=== PATIENT | female | born 1940 | race Caucasian/White ===

== ENCOUNTER → 2017-07-24 | Outpatient (CLI) | payer MEDICARE ==
[~2017-07-24] MED LIST: ACYC800T PO; ASPI-183 PO; CHOL400D2 PO; FLUT50SP EACH NARE; LEVO88TA2 PO; LOSA50TA PO; MELO15TA20 PO; MULTTAB67 PO; PANT40TA3 PO; TIZA2CAP3 PO; TRAM50TA PO
[2017-07-24 10:11] LABS: PROTHROMBIN TIME - PATIENT 10.5 SEC (9.8-11.6)
== END ==
LOC: HLAB 09:31
PROVIDERS: ATTEND Family Medicine
DX: R79.1 Abnormal coagulation profile (principal)
CPT/HCPCS: 36415; 85610

== ENCOUNTER → 2017-07-25 | Outpatient (CLI) | payer MEDICARE ==
[2017-07-25 09:01] LABS: INTERNATIONAL NORMALIZED RATIO 1.1 RATIO; PROTHROMBIN TIME - PATIENT 10.7 SEC (9.8-11.6)
== END ==
LOC: HLAB 08:31
PROVIDERS: ATTEND Specialist
DX: R79.1 Abnormal coagulation profile (principal)
CPT/HCPCS: 36415; 85610

== ENCOUNTER 2017-09-26 18:49 | Observation (INO) | payer MEDICARE ==
[~2017-09-26] VITALS: Ht 160 cm; Wt 62.0 kg
[2017-09-26 18:56] VITALS: BP 176/74; PULSE 85; RESP 16; TEMP 97.9; O2SAT 98
[2017-09-26 19:08] VITALS: BP 146/66; PULSE 81; RESP 18; O2SAT 99
[2017-09-26] MEDS ORDERED: COUM2.5T PO (19:08)
[2017-09-26] MEDS ORDERED: COUM5TAB PO (19:08)
[2017-09-26] MEDS ORDERED: SODIUM CHLOR 0.9% 1000 ML INJ 1,000 ML IV SCH (19:24)
[2017-09-26] MEDS ORDERED: ONDANSETRON HCL 4 MG/2 ML VIAL IVP ONE (19:30)
[2017-09-26] MEDS ORDERED: SODIUM CHLORIDE 0.9% FLUSH 10 ML FLUSH IV FLUSH PRN ×2 (19:30→23:00)
[2017-09-26] MEDS ORDERED: HYDROmorphone HCL PF 1 MG/ML VIAL IVS ONE (19:30)
--- NOTE | 2017-09-26 19:43 | PD ---
HPI Chief Complaint: Chest Pain Time Seen by Provider: 18:59 Travel History International Travel<30 days: No Contact w/Intl Traveler<30days: No Traveled to known affect area: No History of Present Illness HPI Is a 77-year-old woman presents emerged from complaining of upper abdominal pain started today. 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 She is on warfarin. She also has a history of GERD for which she takes a PPI. Symptoms are greater mostly just indigestion. No history of abdominal surgeries. No history of gallbladder problems. No history of heart disease. Starting today after Easter she started getting upper abdominal pain rating into her back. Is associated with nausea but no vomiting, as well as some lightheadedness. Describes pressure-like discomfort. She left in her was heading home but had her bring to the emergency department because symptoms worsen. She has not had previous similar symptoms. She otherwise had been feeling well and healthy before this. No NSAIDs, no alcohol. No other recent illness or injury. No other complaints. History Past Medical History Narrative Medical Vertebral artery dissection, complicated by stroke, on warfarin Hypertension GERD Hypothyroidism Social History Alcohol Use: No Tobacco Use: No Allergies-Medications (Allergen,Severity, Reaction): Coded Allergies: ciprofloxacin (Unverified Allergy, Severe, Rash, 09/26/17) latex (Unverified Allergy, Severe, Rash & Swelling, 09/26/17) codeine (Unverified Allergy, Mild, 09/26/17) Reported Meds & Prescriptions Reported Meds & Active Scripts Active Fluticasone Nasal [place] 50 Mcg/Act Naspr 2 [place] EACH NARE DAILY 50 mcg/spray Tramadol (Tramadol HCl) 50 Mg Tab 50 Mg PO Q8H PRN Take 1/2 tab as needed every 8 hours for pain Levothyroxine (Levothyroxine Sodium) 88 Mcg Tab 88 Mcg PO DAILY Tizanidine (Tizanidine HCl) 2 Mg Cap 2 Mg PO TID PRN Losartan (Losartan Potassium) 50 Mg Tab 50 Mg PO DAILY Pantoprazole (Pantoprazole Sodium) 40 Mg Tab 40 Mg PO DAILY Reported Coumadin (Warfarin) 2.5 Mg Tab 2.5 Mg PO DAILY Coumadin (Warfarin) 5 Mg Tab 5 Mg PO Vitamin D (Cholecalciferol) 400 Unit/Ml Drops 400 Units PO QID Review of Systems Except as stated in HPI: all other systems reviewed are Neg Physical Exam Narrative GENERAL: 77-year-old woman, uncomfortable, nontoxic. SKIN: Focused skin assessment warm/dry. HEAD: Atraumatic. Normocephalic. EYES: Pupils equal and round. No scleral icterus. No injection or drainage. ENT: No nasal bleeding or discharge. Mucous membranes pink and moist. NECK: Trachea midline. No JVD. CARDIOVASCULAR: Regular rate and rhythm. No murmur appreciated. RESPIRATORY: No accessory muscle use. Clear to auscultation. Breath sounds equal bilaterally. GASTROINTESTINAL: Abdomen soft, significant upper and right upper quadrant abdominal tenderness with positive Haider sign. MUSCULOSKELETAL: No obvious deformities. No edema. NEUROLOGICAL: Awake and alert. No obvious cranial nerve deficits. Motor grossly within normal limits. Normal speech. Data Data Last Documented VS Vital Signs Date Time Temp Pulse Resp B/P (MAP) Pulse Ox O2 Delivery O2 Flow Rate FiO2 09/26/17 19:08 81 18 146/66 (92) 99 Room Air 09/26/17 18:56 97.9 Orders Orders Complete Blood Count With Diff (09/26/17 19:24) Comprehensive Metabolic Panel (09/26/17 19:24) Lipase (09/26/17 19:24) Prothrombin Time / Inr (Pt) (09/26/17 19:24) Act Partial Throm Time (Ptt) (09/26/17 19:24) Urinalysis - C+S If Indicated (09/26/17 19:24) Us Abdomen Gallbladder (09/26/17 ) Iv Access Insert/Monitor (09/26/17 19:24) Ecg Monitoring (09/26/17 19:24) Oximetry (09/26/17 19:24) Ondansetron Inj (Zofran Inj) (09/26/17 19:30) Sodium Chlor 0.9% 1000 Ml Inj (Ns 1000 M (09/26/17 19:24) Sodium Chloride 0.9% Flush (Ns Flush) (09/26/17 19:30) Electrocardiogram (09/26/17 19:24) Chest, Single Ap (09/26/17 19:24) Hydromorphone Pf Inj (Dilaudid Pf Inj) (09/26/17 20:00) Urine Culture (09/26/17 19:45) Ceftriaxone Inj (Rocephin Inj) (09/26/17 21:30) Admit Order (Ed Use Only) (09/26/17 ) Labs Laboratory Tests Test 09/26/17 19:37 09/26/17 19:45 White Blood Count 17.0 TH/MM3 Red Blood Count 4.42 MIL/MM3 Hemoglobin 13.7 GM/DL Hematocrit 39.8 % Mean Corpuscular Volume 90.0 FL Mean Corpuscular Hemoglobin 30.9 PG Mean Corpuscular Hemoglobin Concent 34.4 % Red Cell Distribution Width 13.8 % Platelet Count 318 TH/MM3 Mean Platelet Volume 9.1 FL Neutrophils (%) (Auto) 18.5 % Lymphocytes (%) (Auto) 76.1 % Monocytes (%) (Auto) 4.5 % Eosinophils (%) (Auto) 0.3 % Basophils (%) (Auto) 0.6 % Neutrophils # (Auto) 3.2 TH/MM3 Lymphocytes # (Auto) 13.0 TH/MM3 Monocytes # (Auto) 0.8 TH/MM3 Eosinophils # (Auto) 0.0 TH/MM3 Basophils # (Auto) 0.1 TH/MM3 CBC Comment AUTO DIFF Differential Total Cells Counted 100 Neutrophils % (Manual) 26 % Lymphocytes % 69 % Monocytes % 5 % Neutrophils # (Manual) 4.4 TH/MM3 Differential Comment FINAL DIFF MANUAL Platelet Estimate NORMAL Platelet Morphology Comment NORMAL Red Cell Morphology Comment NORMAL Prothrombin Time 16.7 SEC Prothromb Time International Ratio 1.7 RATIO Activated Partial Thromboplast Time 29.9 SEC Blood Urea Nitrogen 17 MG/DL Creatinine 0.96 MG/DL Random Glucose 90 MG/DL Total Protein 7.5 GM/DL Albumin 4.0 GM/DL Calcium Level 8.8 MG/DL Alkaline Phosphatase 72 U/L Aspartate Amino Transf (AST/SGOT) 138 U/L Alanine Aminotransferase (ALT/SGPT) 106 U/L Total Bilirubin 0.4 MG/DL Sodium Level 137 MEQ/L Potassium Level 3.8 MEQ/L Chloride Level 102 MEQ/L Carbon Dioxide Level 25.4 MEQ/L Anion Gap 10 MEQ/L Estimat Glomerular Filtration Rate 56 ML/MIN Lipase 262 U/L Urine Color YELLOW Urine Turbidity CLEAR Urine pH 6.0 Urine Specific [place] 1.022 Urine Protein TRACE mg/dL Urine Glucose (UA) NEG mg/dL Urine Ketones NEG mg/dL Urine Occult Blood SMALL Urine Nitrite NEG Urine Bilirubin NEG Urine Urobilinogen LESS THAN 2.0 MG/DL Urine Leukocyte Esterase LARGE Urine RBC 6 /hpf Urine WBC 37 /hpf Urine Squamous Epithelial Cells 1 /hpf Urine Transitional Epithelial Cells 1 /hpf Urine Bacteria OCC /hpf Urine Hyaline Casts 2 /lpf Urine Mucus FEW /lpf Microscopic Urinalysis Comment CULTURE INDICATED MDM Medical Decision Making Medical Screen Exam Complete: Yes Emergency Medical Condition: Yes Interpretation(s) My review of EKG: Normal sinus rhythm at a rate of 81, normal axis, normal intervals, no acute ischemia. LABS: CBC remarkable for white count of 17,000 CMP remarkable for elevated AST and ALT Lipase normal Coags INR 1.7 UA with hematuria and pyuria. Gallbladder ultrasound negative. Differential Diagnosis Cholecystitis, gastritis, dissection, cardiac disease, pancreatitis, other Narrative Course Medical decision making INITIAL call is a 77-year-old presents emerged department complaining of upper abdominal pain into the back with significant right upper quadrant tenderness and positive Haider sign strongly suggestive of acute cholecystitis. She looks well. Said his previous dissection in the past. Symptoms do not seem consistent with dissection. Will check labs, ultrasound, medication, reassess. FINAL: Patient with negative normal ultrasound. History strongly suggestive of biliary disease however. AST ALT are low but elevated. White counseled bit elevated. Could be suspicious for choledocholithiasis. Some pyuria in the urine however I do not think this really explains her clinical findings. Given her age, diagnostic uncertainty, we will plan on admission for observation. Diagnosis Primary Impression: Abdominal pain Johnathan Riley MD Sep 26, 2017 19:43
--- NOTE | 2017-09-26 19:58 | RADRPT ---
EXAM DATE/TIME: 09/26/2017 19:47 [facility] COMPARISON: No previous studies available for comparison. INDICATIONS : Chest pains. MEDICAL HISTORY : SURGICAL HISTORY : None. ENCOUNTER: Initial ACUITY: 1 day PAIN SCORE: 5/10 LOCATION: Bilateral chest FINDINGS: A single view of the chest demonstrates the lungs to be symmetrically aerated without evidence of mas s, infiltrate or effusion. The cardiomediastinal contours are unremarkable. Osseous structures are intact. CONCLUSION: No acute disease. Farhat Hyman MD on September 26, 2017 at 19:56 Board Certified Radiologist. This report was verified electronically.
[2017-09-26 19:59] LABS: AUTOMATED NEUTROPHIL # 3.2 TH/MM3 (1.8-7.7); BASOPHIL # 0.1 TH/MM3 (0-0.2); BASOPHIL % 0.6 % (0.0-2.0); EOSINOPHIL % 0.3 % (0.0-4.0); HEMATOCRIT 39.8 % (35.0-46.0); HEMOGLOBIN 13.7 GM/DL (11.6-15.3); LYMPH % 76.1 % (9.0-44.0); MEAN CORPUSCULAR HEMOGLOBIN 30.9 PG (27.0-34.0); MEAN CORPUSCULAR HGB CONC 34.4 % (32.0-36.0); MEAN PLATELET VOLUME 9.1 FL (7.0-11.0); MONO % 4.5 % (0.0-8.0); MONOCYTE # 0.8 TH/MM3 (0-0.9); NEUT % 18.5 % (16.0-70.0); PLATELET COUNT 318 TH/MM3 (150-450); RED BLOOD COUNT 4.42 MIL/MM3 (4.00-5.30); RED CELL DISTRIBUTION WIDTH 13.8 % (11.6-17.2)
[2017-09-26] MEDS ORDERED: HYDROmorphone HCL PF 2 MG/ML VIAL IV PUSH ONE (20:00)
[2017-09-26 20:11] LABS: INTERNATIONAL NORMALIZED RATIO 1.7 RATIO; PROTHROMBIN TIME - PATIENT 16.7 SEC (9.8-11.6)
[2017-09-26 20:16] LABS: BACTERIA, URINE OCC /hpf; BILIRUBIN, URINE NEG (NEG); BLOOD, URINE SMALL (NEG); GLUCOSE,URINE NEG (NEG); HYALINE CAST, URINE 2 /lpf (RARE); KETONE, URINE NEG (NEG); MUCUS URINE FEW /lpf (OCC); NITRITE,URINE NEG (NEG); SQUAMOUS EPITHELIAL CELL URINE 1 /hpf (0-5); TRANSITIONAL EPI CELLS, URINE 1 /hpf; URINE COLOR YELLOW (YELLW/STRAW); URINE LEUKOCYTE ESTERASE LARGE (NEG)
[2017-09-26 20:19] LABS: ALT (GPT) 106 U/L (10-53); AST (GOT) 138 U/L (15-37); BICARBONATE 25.4 MEQ/L (21.0-32.0); BLOOD UREA NITROGEN 17 MG/DL (7-18); CALCIUM 8.8 MG/DL (8.5-10.1); CHLORIDE 102 MEQ/L (98-107); CREATININE 0.96 MG/DL (0.50-1.00); GLOMERULAR FILTRATION RATE 56 ML/MIN (>89); GLUCOSE,RANDOM 90 MG/DL (74-106); SODIUM (NA) 137 MEQ/L (136-145)
[2017-09-26 20:22] LABS: ALKALINE PHOSPHATASE 72 U/L (45-117); TOTAL BILIRUBIN ADULT 0.4 MG/DL (0.2-1.0); TOTAL PROTEIN 7.5 GM/DL (6.4-8.2)
[2017-09-26 20:47] LABS: LYMPHOCYTES 69 % (9-44); MONOCYTES 5 % (0-8); NEUTROPHIL # MANUAL DIFF 4.4 TH/MM3 (1.8-7.7); POLYS (SEG NEUTROPHILS) 26 % (16-70)
--- NOTE | 2017-09-26 20:47 | RADRPT ---
EXAM DATE/TIME: 09/26/2017 20:14 [facility] COMPARISON: No previous studies available for comparison. INDICATIONS : Right upper quadrant pain. MEDICAL HISTORY : Stroke. Hypertension. Gastroesophageal reflux disease. Thyroid disease. Cataracts. Hyperlipidemia. Ur inary tract infection. Skin cancer. Sciatica. SURGICAL HISTORY : Bilateral bunionectomy. ENCOUNTER: Initial ACUITY: 4-6 days PAIN SCORE: 5/10 LOCATION: Right upper quadrant MEASUREMENTS: LIVER: 11.7 cm length COMMON DUCT: 4 mm RIGHT KIDNEY: 9.2 x 3.0 x 4.2 cm FINDINGS: LIVER: Normal echotexture without focal lesion or ductal dilatation. COMMON DUCT: No intraluminal mass or stone visualized. GALLBLADDER: Contains no stones, demonstrates no wall thickening or pericholecystic fluid. PANCREAS: The visualized portions are within normal limits. RIGHT KIDNEY: No evidence of hydronephrosis, stone, or mass. CONCLUSION: Normal examination. Farhat Hyman MD on September 26, 2017 at 20:45 Board Certified Radiologist. This report was verified electronically.
[2017-09-26] MEDS ORDERED: cefTRIAXone INJ 1,000 MG in SODIUM CHLORIDE 0.9% INJ 100 ML IV ONE (21:30)
--- NOTE | 2017-09-26 21:42 | HHI.HP ---
[facility] Service Family Medicine Primary Care Physician Radha Mc MD Admission Diagnosis Diagnoses: International Travel<30 Days: No Contact w/Intl Traveler<30days: No Known Affected Area: No History of Present Illness 77 y/o F, hx of GERD, vertebral dissection, comes in with abdominal pain. 6PM this evening she started to feel abdominal pain ; she was trying to sit down at dinner and felt like she couldn't eat. [place] sweaty. She has never felt like this before, and she decided to come into the ED. The pain started in the center of her abdomen and moved to the epigastric area. Denies any left-sided chest pain/dizzyness/confusion. She did feel like "she couldn't catch her breath " because of the pressure. For lunch today she had an egg, sandwich, deviled egg , and a mint chocolate. She has been having intermittent back pain x 1 month, diagnosed as muscle spasm by PCP. Her back pain is exacerbated by activity. SHe takes tylenol for the pain ; including 10 days ago when she would take max 4 tablets of 500mg tabs / day. She took 2 tylenol today, but no tylenol the 3 days prior. She has taken muscle relaxants very sparingly. (Ainsley Guerra MD R2) Review of Systems Constitutional: COMPLAINS OF: Weight loss (lost 15lb on purpose, dieting), DENIES: Fever, Weight gain Endocrine: DENIES: Polyuria Eyes: DENIES: Vision loss, Double Vision Ears, nose, mouth, throat: DENIES: Hearing loss, Vertigo Respiratory: DENIES: Cough, Wheezing, Hemoptysis Cardiovascular: DENIES: Dyspnea on Exertion, PND, Lower Extremity Edema Gastrointestinal: DENIES: Black stools, Bloody stools Integumentary: DENIES: Rash Neurologic: DENIES: Headache, Seizures Psychiatric: DENIES: Mood changes, Depression (Ainsley Guerra MD R2) Past Family Social History Past Medical History GERD Sciatica Possible muscle spasm Hypothyroidism HTN Past Surgical History foot bunion surgery 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 (Ainsley Guerra MD R2) Allergies: Coded Allergies: ciprofloxacin (Unverified Allergy, Severe, Rash, 09/26/17) latex (Unverified Allergy, Severe, Rash & Swelling, 09/26/17) codeine (Unverified Allergy, Mild, 09/26/17) Family History Cholecystectomys for all the women in the family Social History lives at home with no smoking, no drinking (no drinking for 3 months), no drug use (Ainsley Guerra MD R2) Physical Exam Vital Signs Vital Signs Date Time Temp Pulse Resp B/P (MAP) Pulse Ox O2 Delivery O2 Flow Rate FiO2 09/26/17 19:08 81 18 146/66 (92) 99 Room Air 09/26/17 18:56 97.9 85 16 176/74 (108) 98 Physical Exam GENERAL: This is a well-nourished, well-developed patient, in no apparent distress. Per records at the time of ED admission she was in 8 out of 10 pain and in acute right upper quadrant abdominal pain. Patient was given a dose of Dilaudid and now she is comfortable and without pain. No current complaints SKIN: No rashes, ecchymoses or lesions. Cool and dry. HEAD: Atraumatic. Normocephalic. No temporal or scalp tenderness. EYES: Pupils equal round and reactive. Extraocular motions intact. No scleral icterus. No injection or drainage. ENT: Nose without bleeding, purulent drainage or septal hematoma. Throat without erythema, tonsillar hypertrophy or exudate. Uvula midline. Airway patent. NECK: Trachea midline. No JVD or lymphadenopathy. Supple, nontender, no meningeal signs. CARDIOVASCULAR: Regular rate and rhythm without murmurs, gallops, or rubs. RESPIRATORY: Clear to auscultation. Breath sounds equal bilaterally. No wheezes , rales, or rhonchi. GASTROINTESTINAL: Abdomen soft, non-tender, nondistended. No hepato-splenomegaly , or palpable masses. No guarding. Patient states some pain can be re-created by palpation of left upper quadrant and right upper quadrant. No pain on palpation of epigastric area. MUSCULOSKELETAL: Extremities without clubbing, cyanosis, or edema. No joint tenderness, effusion, or edema noted. No calf tenderness. Negative Homans sign bilaterally. NEUROLOGICAL: Awake and alert. Cranial nerves II through XII intact. Motor and sensory grossly within normal limits. Five out of 5 muscle strength in all muscle groups. Normal speech. Laboratory Laboratory Tests Test 09/26/17 19:37 09/26/17 19:45 White Blood Count 17.0 Red Blood Count 4.42 Hemoglobin 13.7 Hematocrit 39.8 Mean Corpuscular Volume 90.0 Mean Corpuscular Hemoglobin 30.9 Mean Corpuscular Hemoglobin Concent 34.4 Red Cell Distribution Width 13.8 Platelet Count 318 Mean Platelet Volume 9.1 Neutrophils (%) (Auto) 18.5 Lymphocytes (%) (Auto) 76.1 Monocytes (%) (Auto) 4.5 Eosinophils (%) (Auto) 0.3 Basophils (%) (Auto) 0.6 Neutrophils # (Auto) 3.2 Lymphocytes # (Auto) 13.0 Monocytes # (Auto) 0.8 Eosinophils # (Auto) 0.0 Basophils # (Auto) 0.1 CBC Comment AUTO DIFF Differential Total Cells Counted 100 Neutrophils % (Manual) 26 Lymphocytes % 69 Monocytes % 5 Neutrophils # (Manual) 4.4 Differential Comment FINAL DIFF MANUAL Platelet Estimate NORMAL Platelet Morphology Comment NORMAL Red Cell Morphology Comment NORMAL Prothrombin Time 16.7 Prothromb Time International Ratio 1.7 Activated Partial Thromboplast Time 29.9 Blood Urea Nitrogen 17 Creatinine 0.96 Random Glucose 90 Total Protein 7.5 Albumin 4.0 Calcium Level 8.8 Alkaline Phosphatase 72 Aspartate Amino Transf (AST/SGOT) 138 Alanine Aminotransferase (ALT/SGPT) 106 Total Bilirubin 0.4 Sodium Level 137 Potassium Level 3.8 Chloride Level 102 Carbon Dioxide Level 25.4 Anion Gap 10 Estimat Glomerular Filtration Rate 56 Lipase 262 Urine Color YELLOW Urine Turbidity CLEAR Urine pH 6.0 Urine Specific [place] 1.022 Urine Protein TRACE Urine Glucose (UA) NEG Urine Ketones NEG Urine Occult Blood SMALL Urine Nitrite NEG Urine Bilirubin NEG Urine Urobilinogen LESS THAN 2.0 Urine Leukocyte Esterase LARGE Urine RBC 6 Urine WBC 37 Urine Squamous Epithelial Cells 1 Urine Transitional Epithelial Cells 1 Urine Bacteria OCC Urine Hyaline Casts 2 Urine Mucus FEW Microscopic Urinalysis Comment CULTURE INDICATED Date/Time Source Procedure Growth Status 09/26/17 19:45 Urine Random Urine Urine Culture Pending Received (Ainsley Guerra MD R2) Result Diagram: 09/26/17193609/26/171936 Septic Shock Reassessment Septic shock perfusion: reassessment completed (Ainsley Guerra MD R2) Caprini VTE Risk Assessment Caprini VTE Risk Assessment: No/Low Risk (score <= 1) Caprini Risk Assessment Model Point Value = 1 Point Value = 2 Point Value = 3 Point Value = 5 Age 41-60 Minor surgery BMI > 25 kg/m2 Swollen legs Varicose veins or History of unexplained or recurrent spontaneous Oral contraceptives or hormone replacement Sepsis (< 1 month) Serious lung disease, including pneumonia (< 1 month) Abnormal pulmonary function Acute myocardial infarction Congestive heart failure (< 1 month) History of inflammatory bowel disease Medical patient at bed rest Age 61-74 Arthroscopic surgery Major open surgery (> 45 min) Laparoscopic surgery (> 45 min) Malignancy Confined to bed (> 72 hours) Immobilizing plaster cast Central venous access Age >= 75 History of VTE Family history of VTE Factor V Leiden Prothrombin [id number] Lupus anticoagulant Anticardiolipin antibodies Elevated serum homocysteine Heparin-induced thrombocytopenia Other congenital or acquired thrombophilia Stroke (< 1 month) Elective arthroplasty Hip, pelvis, or leg fracture Acute spinal cord injury (< 1 month) Prophylaxis Regimen Total Risk Factor Score Risk Level Prophylaxis Regimen 0-1 Low Early ambulation 2 Moderate Order ONE of the following: *Sequential Compression Device (SCD) *Heparin 5000 units SQ BID 3-4 Higher Order ONE of the following medications: *Heparin 5000 units SQ TID *Enoxaparin/Lovenox 40 mg SQ daily (WT < 150 kg, CrCl > 30 mL/min) *Enoxaparin/Lovenox 30 mg SQ daily (WT < 150 kg, CrCl > 10-29 mL/min) *Enoxaparin/Lovenox 30 mg SQ BID (WT < 150 kg, CrCl > 30 mL/min) AND/OR *Sequential Compression Device (SCD) 5 or more Highest Order ONE of the following medications: *Heparin 5000 units SQ TID (Preferred with Epidurals) *Enoxaparin/Lovenox 40 mg SQ daily (WT < 150 kg, CrCl > 30 mL/min) *Enoxaparin/Lovenox 30 mg SQ daily (WT < 150 kg, CrCl > 10-29 mL/min) *Enoxaparin/Lovenox 30 mg SQ BID (WT < 150 kg, CrCl > 30 mL/min) AND *Sequential Compression Device (SCD) (Ainsley Guerra MD R2) Assessment and Plan Assessment and Plan 77 y/o F, hx of vertebral artery occlusion, Dixon esophagus and GERD, presents with acute right upper quadrant abdominal pain. (Ainsley Guerra MD R2) Problem List: (1) Elevated LFTs ICD Codes: R79.89 - Other specified abnormal findings of blood chemistry Status: Acute Plan: Physical exam findings on admission consistent with cholecystitis, however imaging did not confirm AST/ALT: 27/33 on 09/10 (see in [facility]) AST/ALT: 138/106 on 09/26 with elevated white count of 17, vital signs stable Alkaline phosphatase normal, bilirubin normal May be due to gallbladder disease versus liver disease versus Tylenol toxicity Right upper quadrant ultrasound:negative CT abdomen: Negative (2) Vertebral artery dissection ICD Codes: I77.74 - Dissection of vertebral artery Plan: Continue ASA 325mg PO daily Due for CTA brain in November f/u neurology outpatient (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 Status: Chronic Plan: GERD and history of Dixon esophagus Cont PPI (4) Hypertension ICD Codes: I10 - Essential (primary) hypertension Status: Chronic Plan: continue home meds (5) Hypothyroidism ICD Codes: E03.9 - Hypothyroidism, unspecified Plan: Re-checked TSH on 09/21 Continue decreased dose of 88 f/u as outpatient (6) Back pain ICD Codes: M54.9 - Dorsalgia, unspecified Status: Chronic Plan: Back pain intermittent 1 month Muscle spasm versus pathological process CT abdomen: Negative (7) fen/ppx Status: Acute Plan: Fluids: Encourage by mouth fluids Electrolytes: BMP normal, replete as needed Nutrition: By mouth diet as tolerated DVT prophylaxis: Continue anticoagulation with warfarin, INR 1.7 subtherapeutic Prophylaxis: Continue PPI (Ainsley Guerra MD R2) Ainsley Guerra MD R2 Sep 26, 2017 21:42 Radha Mc MD Sep 27, 2017 11:07
[2017-09-26] MEDS ORDERED: WARFARIN SOD 5 MG TAB PO SCH (22:15)
[2017-09-26] MEDS: SODIUM CHLOR 0.9% 1000 ML INJ 1,000 ML IV SCH (22:56)
[2017-09-26] MEDS ORDERED: LACTULOSE SYRUP 20 GM/30 ML CUP PO PRN (23:00)
[2017-09-26] MEDS ORDERED: NALOXONE HCL 0.4 MG/ML AMP IV PUSH PRN (23:00)
[2017-09-26] MEDS ORDERED: MAGNESIUM HYDROXIDE SUSP 30 ML CUP PO PRN (23:00)
[2017-09-26] MEDS ORDERED: SENNOSIDES 8.6 MG TAB PO PRN (23:00)
[2017-09-26] MEDS ORDERED: BISACODYL 10 MG SUPP RECTAL PRN (23:00)
[2017-09-26] MEDS ORDERED: TEMAZEPAM 15 MG CAP PO PRN (23:00)
[2017-09-26] MEDS ORDERED: ONDANSETRON HCL 4 MG/2 ML VIAL IVP PRN (23:00)
--- NOTE | 2017-09-26 23:36 | RADRPT ---
EXAM DATE/TIME: 09/26/2017 23:21 [facility] COMPARISON: No previous studies available for comparison. INDICATIONS : Right upper abdomen pain ORAL CONTRAST: No oral contrast ingested. RADIATION DOSE: 6.53 CTDIvol (mGy) MEDICAL HISTORY : Cerebrovascular disease. Hypertension. Gastroesophageal reflux disease. SURGICAL HISTORY : None. ENCOUNTER: Initial ACUITY: 1 day PAIN SCALE: 7/10 LOCATION: Right upper quadrant TECHNIQUE: Volumetric scanning of the abdomen was performed. Using automated exposure control and adjustment of the mA and/or kV according to patient size, radiation dose was kept as low as reasonably achievable to obtain optimal diagnostic quality images. DICOM format image data is available electronically for review and comparison. FINDINGS: LOWER LUNGS: The visualized lower lungs are clear. LIVER: Homogeneous density without lesion. There is no dilation of the biliary tree. No calcified gallston es. SPLEEN: Normal size without lesion. PANCREAS: Within normal limits. KIDNEYS: Normal in size and shape. There is no mass, stone, or hydronephrosis. ADRENAL GLANDS: Within normal limits. AORTA/RETROPERITONEAL: There is no aneurysm or lymphadenopathy. BOWEL/MESENTERY: The stomach and visualized small and large bowel demonstrate no abnormality. MUSCULOSKELETAL: Within normal limits for patient age. CONCLUSION: No acute CT findings in the abdomen Stewart Mitchell MD on September 26, 2017 at 23:32 Board Certified Radiologist. This report was verified electronically.
[2017-09-26 23:37] VITALS: O2SAT 98
[2017-09-27] VITALS (7 sets, daily range): BP systolic 98–126; BP diastolic 54–59; PULSE 57–72; RESP 18–20; TEMP 97.5–97.9; O2SAT 96–98
[2017-09-27 00:26] LABS: TROPONIN I LESS THAN 0.02 NG/ML (0.02-0.05)
[2017-09-27 02:25] LABS: AUTOMATED NEUTROPHIL # 4.3 TH/MM3 (1.8-7.7); BASOPHIL % 0.3 % (0.0-2.0); EOSINOPHIL # 0.1 TH/MM3 (0-0.4); EOSINOPHIL % 0.4 % (0.0-4.0); HEMATOCRIT 36.1 % (35.0-46.0); HEMOGLOBIN 12.3 GM/DL (11.6-15.3); LYMPH % 63.2 % (9.0-44.0); LYMPHOCYTE # 8.5 TH/MM3 (1.0-4.8); MEAN CELL VOLUME 90.3 FL (80.0-100.0); MEAN CORPUSCULAR HEMOGLOBIN 30.9 PG (27.0-34.0); MEAN CORPUSCULAR HGB CONC 34.2 % (32.0-36.0); MEAN PLATELET VOLUME 8.9 FL (7.0-11.0); MONO % 4.5 % (0.0-8.0); MONOCYTE # 0.6 TH/MM3 (0-0.9); NEUT % 31.6 % (16.0-70.0); PLATELET COUNT 258 TH/MM3 (150-450); RED BLOOD COUNT 3.99 MIL/MM3 (4.00-5.30); RED CELL DISTRIBUTION WIDTH 13.7 % (11.6-17.2); WHITE BLOOD COUNT 13.5 TH/MM3 (4.0-11.0)
[2017-09-27 03:02] LABS: ACETAMINOPHEN 2.3 MCG/ML (10.0-30.0); ALKALINE PHOSPHATASE 91 U/L (45-117); ALT (GPT) 805 U/L (10-53); AST (GOT) 1063 U/L (15-37); BICARBONATE 26.1 MEQ/L (21.0-32.0); BLOOD UREA NITROGEN 15 MG/DL (7-18); CHLORIDE 110 MEQ/L (98-107); CREATININE 0.67 MG/DL (0.50-1.00); GLOMERULAR FILTRATION RATE 85 ML/MIN (>89); GLUCOSE,RANDOM 90 MG/DL (74-106); SODIUM (NA) 140 MEQ/L (136-145); TOTAL BILIRUBIN ADULT 0.5 MG/DL (0.2-1.0); TOTAL PROTEIN 6.2 GM/DL (6.4-8.2); TROPONIN I LESS THAN 0.02 NG/ML (0.02-0.05)
[2017-09-27 04:33] LABS: ATYPICAL LYMPHOCYTES 11 % (0-0); BANDS 1 % (0-6); LYMPHOCYTES 56 % (9-44); MONOCYTES 4 % (0-8); NEUTROPHIL # MANUAL DIFF 3.8 TH/MM3 (1.8-7.7); POLYS (SEG NEUTROPHILS) 27 % (16-70)
[2017-09-27] MEDS: LEVOTHYROXINE SODIUM 88 MCG TAB PO SCH (06:36)
--- NOTE | 2017-09-27 08:51 | EKG ---
Date Performed: 09/26/2017 Time Performed: 19:03:12 PTAGE: 77 years EKG: Sinus rhythm NORMAL ECG PREVIOUS TRACING : 10/02/2012 15.50 Since the previous tracing, no significant change noted DOCTOR: Shelly Sunshine Interpretating Date/Time 09/27/2017 08:50:34
[2017-09-27] MEDS: SODIUM CHLOR 0.9% 1000 ML INJ 1,000 ML IV SCH ×2 (09:10→18:56)
[2017-09-27] MEDS: LOSARTAN 50 MG TAB PO SCH (09:10)
[2017-09-27] MEDS: PANTOPRAZOLE SOD 40 MG DELAYED RELEASE TAB PO SCH (09:10)
[2017-09-27] MEDS: SODIUM CHLORIDE 0.9% FLUSH 10 ML FLUSH IV FLUSH SCH ×2 (09:11→21:00)
--- NOTE | 2017-09-27 09:28 | PD.CONS ---
HPI History of Present Illness This is a 77 year old lady with hx CVA in 06/2017 on coumadin who presented to ER for abd pain. The pain is in upper quadrants and started suddenly yesterday evening and worsened. Pain was constant. Never had pain like this before. Recently was prescribed a muscle relaxer but has only taken once. Denies n/v, diarrhea, blood in stool, black tarry stool. Denies any hx liver problems, gallbladder problems. She drinks etoh 1-3 times weekly, "socially" but has not had any etoh since 06/2017. She rarely takes apap. She was taking aleve once daily for a year ago and stopped 06/2017. She sees Dr Obrien. She had colonoscopy last [address] Taylor, found diverticulosis and hemorrhoids. 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 (Macy Pritchard) PFSH Past Medical History CVA 06/2017 HTN hypothyroid GERD vertebral artery dissection Past Surgical History bunionectomy oral surgery (Macy Pritchard) Coded Allergies: ciprofloxacin (Unverified Allergy, Severe, Rash, 09/26/17) latex (Unverified Allergy, Severe, Rash & Swelling, 09/26/17) codeine (Unverified Allergy, Mild, 09/26/17) Family History aneurysm Social History drinks 1-3 x week but none since june 2017 no current tobacco, quit 30y ago no illicit drug use (Macy Pritchard) Review of Systems Constitutional: DENIES: Fever Endocrine: DENIES: Polydipsia Eyes: DENIES: Blurred vision Ears, nose, mouth, throat: DENIES: Hearing loss Respiratory: DENIES: Cough Cardiovascular: DENIES: Chest pain Gastrointestinal: COMPLAINS OF: Abdominal pain, DENIES: Black stools, Bloody stools, Diarrhea, Nausea, Vomiting Genitourinary: DENIES: Hematuria Musculoskeletal: DENIES: Muscle aches Hematologic/lymphatic: DENIES: Bruising Immunologic/allergic: DENIES: Eczema Neurologic: DENIES: Abnormal gait Psychiatric: DENIES: Confusion (Macy Pritchard) GI Exam Vitals I&O Vital Signs Date Time Temp Pulse Resp B/P (MAP) Pulse Ox O2 Delivery O2 Flow Rate FiO2 09/27/17 08:28 97.9 57 20 126/58 (80) 98 09/27/17 04:00 97.8 65 18 108/54 (72) 97 09/27/17 00:41 116/58 (77) 09/27/17 00:00 97.6 72 18 98/55 (69) 98 09/26/17 23:59 09/26/17 23:37 98 09/26/17 19:08 81 18 146/66 (92) 99 Room Air 09/26/17 18:56 97.9 85 16 176/74 (108) 98 I/O 09/26/17 09/26/17 09/26/17 09/27/17 09/27/17 09/27/17 07:00 15:00 23:00 07:00 15:00 23:00 Intake Total 100 ml Balance 100 ml Intake IV Total 100 ml Imaging Last Impressions Abdomen CT 09/26/17 2246 Signed Impressions: Service Date/Time: Tuesday, September 26, 2017 23:21 - CONCLUSION: No acute CT findings in the abdomen Stewart Mitchell MD Chest X-Ray 09/26/17 1924 Signed Impressions: Service Date/Time: Tuesday, September 26, 2017 19:47 - CONCLUSION: No acute disease. Farhat Hyman MD Gall Bladder Ultrasound 09/26/17 0000 Signed Impressions: Service Date/Time: Tuesday, September 26, 2017 20:14 - CONCLUSION: Normal examination. Farhat Hyman MD Laboratory Test 09/26/17 19:37 09/26/17 19:45 09/27/17 01:54 09/27/17 07:18 White Blood Count 17.0 TH/MM3 13.5 TH/MM3 Red Blood Count 4.42 MIL/MM3 3.99 MIL/MM3 Hemoglobin 13.7 GM/DL 12.3 GM/DL Hematocrit 39.8 % 36.1 % Mean Corpuscular Volume 90.0 FL 90.3 FL Mean Corpuscular Hemoglobin 30.9 PG 30.9 PG Mean Corpuscular Hemoglobin Concent 34.4 % 34.2 % Red Cell Distribution Width 13.8 % 13.7 % Platelet Count 318 TH/MM3 258 TH/MM3 Mean Platelet Volume 9.1 FL 8.9 FL Neutrophils (%) (Auto) 18.5 % 31.6 % Lymphocytes (%) (Auto) 76.1 % 63.2 % Monocytes (%) (Auto) 4.5 % 4.5 % Eosinophils (%) (Auto) 0.3 % 0.4 % Basophils (%) (Auto) 0.6 % 0.3 % Neutrophils # (Auto) 3.2 TH/MM3 4.3 TH/MM3 Lymphocytes # (Auto) 13.0 TH/MM3 8.5 TH/MM3 Monocytes # (Auto) 0.8 TH/MM3 0.6 TH/MM3 Eosinophils # (Auto) 0.0 TH/MM3 0.1 TH/MM3 Basophils # (Auto) 0.1 TH/MM3 0.0 TH/MM3 CBC Comment AUTO DIFF AUTO DIFF Differential Total Cells Counted 100 100 Neutrophils % (Manual) 26 % 27 % Lymphocytes % 69 % 56 % Monocytes % 5 % 4 % Neutrophils # (Manual) 4.4 TH/MM3 3.8 TH/MM3 Differential Comment FINAL DIFF MANUAL FINAL DIFF MANUAL Platelet Estimate NORMAL NORMAL Platelet Morphology Comment NORMAL NORMAL Red Cell Morphology Comment NORMAL NORMAL Prothrombin Time 16.7 SEC Prothromb Time International Ratio 1.7 RATIO Activated Partial Thromboplast Time 29.9 SEC Blood Urea Nitrogen 17 MG/DL 15 MG/DL Creatinine 0.96 MG/DL 0.67 MG/DL Random Glucose 90 MG/DL 90 MG/DL Total Protein 7.5 GM/DL 6.2 GM/DL Albumin 4.0 GM/DL 3.0 GM/DL Calcium Level 8.8 MG/DL 8.0 MG/DL Alkaline Phosphatase 72 U/L 91 U/L Aspartate Amino Transf (AST/SGOT) 138 U/L 1063 U/L Alanine Aminotransferase (ALT/SGPT) 106 U/L 805 U/L Total Bilirubin 0.4 MG/DL 0.5 MG/DL Sodium Level 137 MEQ/L 140 MEQ/L Potassium Level 3.8 MEQ/L 3.8 MEQ/L Chloride Level 102 MEQ/L 110 MEQ/L Carbon Dioxide Level 25.4 MEQ/L 26.1 MEQ/L Anion Gap 10 MEQ/L 4 MEQ/L Estimat Glomerular Filtration Rate 56 ML/MIN 85 ML/MIN Troponin I LESS THAN 0.02 NG/ML LESS THAN 0.02 NG/ML LESS THAN 0.02 NG/ML Lipase 262 U/L 188 U/L Urine Color YELLOW Urine Turbidity CLEAR Urine pH 6.0 Urine Specific Wells 1.022 Urine Protein TRACE mg/dL Urine Glucose (UA) NEG mg/dL Urine Ketones NEG mg/dL Urine Occult Blood SMALL Urine Nitrite NEG Urine Bilirubin NEG Urine Urobilinogen LESS THAN 2.0 MG/DL Urine Leukocyte Esterase LARGE Urine RBC 6 /hpf Urine WBC 37 /hpf Urine Squamous Epithelial Cells 1 /hpf Urine Transitional Epithelial Cells 1 /hpf Urine Bacteria OCC /hpf Urine Hyaline Casts 2 /lpf Urine Mucus FEW /lpf Microscopic Urinalysis Comment CULTURE INDICATED Band Neutrophils % 1 % Eosinophils % 1 % Atypical Lymphocytes 11 % Acetaminophen Level 2.3 MCG/ML Date/Time Source Procedure Growth Status 09/26/17 19:45 Urine Random Urine Urine Culture Pending Received Physical Examination HEENT: PERRL; normocephalic; atraumatic; no jaundice. CHEST: CTA CARDIAC: RRR ABDOMEN: Soft, nondistended, nontender; no hepatosplenomegaly; bowel sounds are present in all four quadrants. EXTREMITIES: No clubbing, cyanosis, or edema. SKIN: Normal; no rash; no jaundice. STEM TEACHER: No focal deficits; alert and oriented times three. (Macy Pritchard) Assessment and Plan Plan ASSESSMENT - abd pain, elevated LFTs - unclear etiology. on admission AST 138, ALT 106, ALP 72, TBIL 0.4. LFTs have gone up today, bili WNL. APAP WNL. Lipase WNL. no prior hx problems with GB or liver. GB US normal, CT abd no acute findings. a HIDA scan is pending - lymphocytosis - unclear significance PLAN - liver w/u - monoscreen - await HIDA - ok to eat from GI standpoint after HIDA is completed - monitor LFTs - further recs as case unfolds pt seen by myself and Dr Obrien and this note is on his behalf (Macy Pritchard) Physician Comments Seen and examined with KARISSA, surgery consulted. EGD planned for tomorrow. Thank you (Chula Obrien MD) Macy Pritchard Sep 27, 2017 09:28 Chula Obrien MD Sep 27, 2017 15:43
--- NOTE | 2017-09-27 09:50 | RADRPT ---
EXAM DATE/TIME: 09/27/2017 08:54 [facility] COMPARISON: US ABDOMEN - GALLBLADDER, September 26, 2017, 20:14. INDICATIONS : Right upper quadrant pain. MEDICAL HISTORY : Hypothyroidism. Osteoarthritis. Cataracts. CVA. Hyperlipidemia. HTN. GERD. Mumps. UTI. Skin cancer. SURGICAL HISTORY : Bilateral bunionectomies. Right leg excision skin lesion. ENCOUNTER: Initial ACUITY: 2 days PAIN SCORE: 6/10 LOCATION: Right upper quadrant MEASUREMENTS: LIVER: 11.8 cm length COMMON DUCT: 4 mm RIGHT KIDNEY: 9.2 x 4.3 x 4.0 cm FINDINGS: LIVER: Normal echotexture without focal lesion or ductal dilatation. COMMON DUCT: No intraluminal mass or stone visualized. GALLBLADDER: There are small echogenic areas near the fundus of the gallbladder which demonstrate acoustic shadowi ng suggestive of multiple small gallstones. Gallbladder wall is normal in thickness. Negative sonog raphic Haider's sign. PANCREAS: The visualized portions are within normal limits. RIGHT KIDNEY: No evidence of hydronephrosis, stone, or mass. CONCLUSION: 1. Multiple small gallstones with normal dimension common hepatic duct. Cornelio Del Rio MD on September 27, 2017 at 9:46 Board Certified Radiologist. This report was verified electronically.
--- NOTE | 2017-09-27 11:32 | HHI.FPPN ---
Subjective Subjective Patient seen and examined. Case reviewed and discussed with the resident team Please refer to resident H&P for further details regarding HPI, ROS, PMH, SurgHx , FH and SocHx In summary, patient is a 77yoF with a history of recent vertebral artery dissection and subsequent CVA anticoagulated on Coumadin, presenting with intense abdominal pain. Patient was at her family's home for [facility] at which time she started to develop upper epigastric and RUQ pain which radiated to her back. It was constant in nature and continued until she received pain relief in the ED. Pain was associated with diaphoresis. She is improved this am, but still feels the constant dull ache, but this is significantly improved. GI consultation pending. [facility] Objective Objective Last Impressions Gall Bladder Ultrasound 09/27/17 0800 Signed Impressions: Service Date/Time: Wednesday, September 27, 2017 08:54 - CONCLUSION: 1. Multiple small gallstones with normal dimension common hepatic duct. Cornelio Del Rio MD Abdomen CT 09/26/17 2246 Signed Impressions: Service Date/Time: Tuesday, September 26, 2017 23:21 - CONCLUSION: No acute CT findings in the abdomen Stewart Mitchell MD Chest X-Ray 09/26/17 1924 Signed Impressions: Service Date/Time: Tuesday, September 26, 2017 19:47 - CONCLUSION: No acute disease. Farhat Hyman MD Laboratory Tests - Abnormals Test 09/26/17 19:37 09/26/17 19:45 09/27/17 01:54 09/27/17 07:18 White Blood Count 17.0 TH/MM3 13.5 TH/MM3 Lymphocytes (%) (Auto) 76.1 % 63.2 % Lymphocytes # (Auto) 13.0 TH/MM3 8.5 TH/MM3 Lymphocytes % 69 % 56 % Prothrombin Time 16.7 SEC Aspartate Amino Transf (AST/SGOT) 138 U/L 1063 U/L Alanine Aminotransferase (ALT/SGPT) 106 U/L 805 U/L Estimat Glomerular Filtration Rate 56 ML/MIN 85 ML/MIN Troponin I LESS THAN 0.02 NG/ML LESS THAN 0.02 NG/ML LESS THAN 0.02 NG/ML Urine Occult Blood SMALL Urine Leukocyte Esterase LARGE Urine RBC 6 /hpf Urine WBC 37 /hpf Urine Bacteria OCC /hpf Urine Mucus FEW /lpf Red Blood Count 3.99 MIL/MM3 Atypical Lymphocytes 11 % Total Protein 6.2 GM/DL Albumin 3.0 GM/DL Calcium Level 8.0 MG/DL Chloride Level 110 MEQ/L Anion Gap 4 MEQ/L Acetaminophen Level 2.3 MCG/ML Vital Signs 09/26/17 09/26/17 09/26/17 09/26/17 18:56 19:08 23:37 23:59 Temp 97.9 Pulse 85 81 Resp 16 18 B/P (MAP) 176/74 (108) 146/66 (92) Pulse Ox 98 99 98 O2 Delivery Room Air 09/27/17 09/27/17 09/27/17 09/27/17 00:00 00:41 04:00 08:28 Temp 97.6 97.8 97.9 Pulse 72 65 57 Resp 18 18 20 B/P (MAP) 98/55 (69) 116/58 (77) 108/54 (72) 126/58 (80) Pulse Ox 98 97 98 Physical exam GENERAL: wdwn female, resting in bed. SKIN: Warm and dry. No rashes, lesions. No jaundice. HEAD: Normocephalic. AT EYES: No scleral icterus. No injection or drainage. ENT: OP Clear. MMM NECK: Supple, trachea midline. No JVD or lymphadenopathy. CARDIOVASCULAR: Regular rate and rhythm without audible murmurs, gallops, or rubs. RESPIRATORY: Breath sounds equal and clear bilaterally. No accessory muscle use. GASTROINTESTINAL: Abdomen soft, there is tenderness over the RUQ, no rebound. Liver edge is palpable approx 1cm below costal margin. Nondistended. MUSCULOSKELETAL: No cyanosis, or edema. No calf tenderness BACK: Nontender without obvious deformity. No CVA tenderness. NEURO: Awake and alert. Normal speech. CN grossly intact. MAEW. Assessment Assessment 77yoF admitted with: Abdominal pain Leukocytosis Recent CVA 2/2 vertebral artery dissection Anticoagulated on Coumadin Transaminitis Hypothyroidism GERD HTN UTI PLAN PLAN Trend LFTs RUQ Ultrasound HIDA GI consultation, appreciate recs Monitor cbc Follow urine culture Empiric antibiotic therapy with Rocephin Resume home meds as appropriate Patient seen and examined. Case reviewed and discussed Agree with plan of care as discussed with me and documented in the resident note. Radha Mc MD Sep 27, 2017 11:32
[2017-09-27] MEDS ORDERED: SINCALIDE 5 MCG/5 ML VIAL IV ONE (11:50)
--- NOTE | 2017-09-27 12:59 | RADRPT ---
EXAM DATE/TIME: 09/27/2017 10:41 [facility] COMPARISON: US ABDOMEN - GALLBLADDER, September 27, 2017, 8:54. CT ABDOMEN W/O CONTRAST, September 26, 2017, 23:21. US ABDOMEN - GALLBLADDER, September 26, 2017, 20:14. INDICATIONS : Abdominal pain. DOSE: 4.0 mCi Tc99m Mebrofenin IV MEDICATION: 1.24 mcg Cholecystokinin IV; No symptomatic response. Cholecystokinin was administered by slow infusion over 8 minutes beginning at 62 minutes. MEDICAL HISTORY : Gastroesophageal reflux disease. Hypertension. SURGICAL HISTORY : Skin cancer removal. ENCOUNTER: Initial ACUITY: 2 days PAIN SCALE: 7/10 LOCATION: Right upper quadrant TECHNIQUE: Following the intravenous administration of radiotracer, dynamic sequential image were performed with continuous acquisition. Time-activity curves were generated. FINDINGS: HEPATIC KINETICS: There is prompt uptake of radiotracer in the liver. No focal defects are seen. There is normal rate of washout from the hepatic parenchyma. BILIARY CLEARANCE: Activity is first seen in the extrahepatic biliary system at 14 minutes. There is normal excretion i nto the small bowel. GALLBLADDER: Activity is first seen in the gallbladder at 20 minutes. POST CHOLECYSTOKININ: After Cholecystokinin administration, there is prompt emptying of the gallbladder with an approximate ly 25% ejection fraction. Common bile duct kinetics are normal and there is no evidence of biliary o bstruction. BILIARY ENTERIC REFLUX: None observed. CLINICAL: The patient was asymptomatic after Cholecystokinin administration. CONCLUSION: Somewhat poor gallbladder contraction after cholecystokinin. Otherwise negative. Stewart Cortes MD on September 27, 2017 at 12:55 Board Certified Radiologist. This report was verified electronically.
[2017-09-27] MEDS ORDERED: WARFARIN SOD 2.5 MG TAB PO SCH (16:00)
[2017-09-27 16:02] LABS: IRON (FE) 133 MCG/DL (50-170); TOTAL IRON BINDING CAPACITY 246 MCG/DL (250-450)
[2017-09-27] MEDS ORDERED: cefTRIAXone INJ 1,000 MG in SODIUM CHLORIDE 0.9% INJ 100 ML IV SCH (19:00)
[2017-09-28] VITALS (7 sets, daily range): BP systolic 121–141; BP diastolic 58–85; PULSE 63–75; RESP 16–18; TEMP 97.6–98.6; O2SAT 94–99
[2017-09-28] MEDS: SODIUM CHLOR 0.9% 1000 ML INJ 1,000 ML IV SCH ×2 (05:19→14:56)
[2017-09-28] MEDS: LEVOTHYROXINE SODIUM 88 MCG TAB PO SCH (05:19)
[2017-09-28] MEDS ORDERED: LACTATED RINGER'S 1000 ML IV PRN (05:45)
[2017-09-28] MEDS ORDERED: SODIUM CHLORID 0.9% 500 ML IV PRN (05:45)
[2017-09-28] MEDS ORDERED: POVIDONE IODINE 5% (ANTISEPSIS KIT) 4 APPLICATIONS EACH NARE PRN (05:45)
[2017-09-28] MEDS ORDERED: METOPROLOL TARTRATE 25 MG TAB PO PRN (05:45)
[2017-09-28] MEDS ORDERED: CHLORHEXIDINE GLUCONATE 2 % 1 PACK (2 CLOTHS) TOPICAL PRN (05:45)
[2017-09-28 07:12] LABS: AUTOMATED NEUTROPHIL # 1.6 TH/MM3 (1.8-7.7); BASOPHIL % 0.4 % (0.0-2.0); EOSINOPHIL # 0.1 TH/MM3 (0-0.4); EOSINOPHIL % 0.8 % (0.0-4.0); HEMATOCRIT 39.1 % (35.0-46.0); HEMOGLOBIN 13.2 GM/DL (11.6-15.3); LYMPH % 83.7 % (9.0-44.0); LYMPHOCYTE # 11.5 TH/MM3 (1.0-4.8); MEAN CELL VOLUME 91.3 FL (80.0-100.0); MEAN CORPUSCULAR HEMOGLOBIN 30.9 PG (27.0-34.0); MEAN CORPUSCULAR HGB CONC 33.8 % (32.0-36.0); MEAN PLATELET VOLUME 9.2 FL (7.0-11.0); MONO % 3.2 % (0.0-8.0); MONOCYTE # 0.4 TH/MM3 (0-0.9); NEUT % 11.9 % (16.0-70.0); PLATELET COUNT 283 TH/MM3 (150-450); RED BLOOD COUNT 4.28 MIL/MM3 (4.00-5.30); RED CELL DISTRIBUTION WIDTH 13.8 % (11.6-17.2); WHITE BLOOD COUNT 13.8 TH/MM3 (4.0-11.0)
[2017-09-28 07:38] LABS: ALBUMIN 3.5 GM/DL (3.4-5.0); AST (GOT) 291 U/L (15-37); BICARBONATE 26.5 MEQ/L (21.0-32.0); BLOOD UREA NITROGEN 9 MG/DL (7-18); CALCIUM 8.7 MG/DL (8.5-10.1); CHLORIDE 107 MEQ/L (98-107); CREATININE 0.67 MG/DL (0.50-1.00); GLOMERULAR FILTRATION RATE 85 ML/MIN (>89); GLUCOSE,RANDOM 78 MG/DL (74-106); SODIUM (NA) 141 MEQ/L (136-145)
[2017-09-28 07:40] LABS: ALT (GPT) 689 U/L (10-53)
[2017-09-28 07:42] LABS: ALKALINE PHOSPHATASE 108 U/L (45-117); TOTAL BILIRUBIN ADULT 0.5 MG/DL (0.2-1.0); TOTAL PROTEIN 7.1 GM/DL (6.4-8.2)
[2017-09-28 09:34] LABS: LYMPHOCYTES 89 % (9-44); MONOCYTES 1 % (0-8); NEUTROPHIL # MANUAL DIFF 1.2 TH/MM3 (1.8-7.7); POLYS (SEG NEUTROPHILS) 9 % (16-70)
[2017-09-28 09:35] LABS: SMUDGE CELLS PRESENT PRESENT
--- NOTE | 2017-09-28 10:05 | GIPROC ---
[facility] [address] [facility]. [facility], [id number] EGD PROCEDURE REPORT EXAM DATE: 09/28/2017 PATIENT NAME: Desi Kirkpatrick MR #: [id number] BIRTHDATE: 1940 ATTENDING: Chula Obrien MD ORDER #: [id number] NETWORK SYSTEMS ANALYST: Lachelle Jeffrey and Maude Spence STATUS: inpatient INDICATIONS: The patient is a 77 yr old female here for an EGD due to epigastric abdominal pain PROCEDURE PERFORMED: EGD w/ biopsy MEDICATIONS: None and Per Anesthesia. TOPICAL ANESTHETIC: CONSENT: The patient understands the risks and benefits of the procedure and understands that these risks include, but are not limited to: sedation, allergic reaction, infection, perforation and/or bleeding. Alternative means of evaluation and treatment include, among others: physical exam, x-rays, and/or surgical intervention. The patient elects to proceed with this endoscopic procedure. medical equipment was checked for proper function. Hand hygiene and appropriate measures for infection prevention was taken. After the risks, benefits and alternatives of the procedure were thoroughly explained, Informed consent was verified, confirmed and timeout was successfully executed by the treatment team. The patient was anesthetized with topical anesthesia and the Pentax [id number] endoscope was introduced through the mouth and advanced to the second portion of the duodenum. Retroflexed views revealed no abnormalities The gastroscope was then slowly withdrawn and removed. ESOPHAGUS: There was LA Class A esophagitis noted. A biopsy was performed using cold forceps. Sample sent for histology. STOMACH: There was erythematous moderate gastritis in the gastric antrum. A biopsy was performed using cold forceps. Sample sent for histology. DUODENUM: The duodenal mucosa appeared normal in the bulb and second portion of the duodenum. ADVERSE EVENTS: There were no complications. IMPRESSIONS: 1. There was LA Class A esophagitis noted; biopsy was performed 2. There was erythematous gastritis in the gastric antrum; biopsy was performed 3. Normal duodenal mucosa in the bulb and second portion of the duodenum 4. Retroflexed views revealed no abnormalities RECOMMENDATIONS: 1. Await biopsy results. Biopsy results will not be ready for 7-10 days. If you don't hear from us in two weeks, call our office for biopsy results. 2. Anti-reflux regimen 3. Continue PPI 4. Avoid NSAIDS PATIENT CONDITION: stable DISPOSITION: Inpatient REPEAT EXAM: Return 3 years EGD pending biopsy results Chula Obrien MD eSigned: Chula Obrien MD 09/28/2017 10:04 AM cc: PATIENT NAME: Kaya Desi M MR#: [id number]
[2017-09-28 10:16] LABS: MONOSCREEN NEG (NEG)
[2017-09-28] MEDS: metroNIDAZOLE 500 MG INJ 100 ML IV SCH ×2 (11:08→18:15)
[2017-09-28] MEDS: PANTOPRAZOLE SOD 40 MG DELAYED RELEASE TAB PO SCH (11:08)
[2017-09-28] MEDS: LOSARTAN 50 MG TAB PO SCH (11:08)
[2017-09-28] MEDS: SODIUM CHLORIDE 0.9% FLUSH 10 ML FLUSH IV FLUSH SCH ×2 (11:08→21:00)
[2017-09-28] MEDS ORDERED: LIDOCAINE HCL 1% PF 5 ML SYRINGE OTHER ONE (12:00)
[2017-09-28] MEDS ORDERED: PROPOFOL 200 MG/20 ML AMP IV ONE (12:00)
--- NOTE | 2017-09-28 12:11 | HHI.FPPN ---
Subjective Remarks Patient seen and examined bedside this morning. Patient continues to decline any abdominal pain. She has no nausea or vomiting. She denies any chest pain/ restless breath/dizziness. She states GI came by and said that she will be going to a procedure (Ainsley Guerra MD R2) Objective Vitals Vital Signs Date Time Temp Pulse Resp B/P (MAP) Pulse Ox O2 Delivery O2 Flow Rate FiO2 09/28/17 10:15 97.0 67 18 119/64 (82) 98 09/28/17 08:22 98 21 09/28/17 08:06 98.0 66 18 130/66 (87) 99 09/28/17 04:37 98.1 63 16 127/62 (83) 96 09/28/17 00:31 98.0 75 16 121/58 (79) 98 09/27/17 21:43 96 21 09/27/17 21:38 97.9 70 18 105/55 (72) 96 09/27/17 15:09 97.5 58 20 122/59 (80) 98 I/O 09/27/17 09/27/17 09/27/17 09/28/17 09/28/17 09/28/17 07:00 15:00 23:00 07:00 15:00 23:00 Intake Total 100 ml 700 ml Balance 100 ml 700 ml Intake IV Total 100 ml Other 700 ml # Voids 1 2 1 (Ainsley Guerra MD R2) Result Diagram: 09/28/17 0540 09/28/17 0540 Objective Remarks GENERAL: No acute distress, vital signs stable SKIN: Warm and dry. HEAD: Normocephalic. EYES: No scleral icterus. No injection or drainage. NECK: Supple, trachea midline. No JVD or lymphadenopathy. CARDIOVASCULAR: Regular rate and rhythm without murmurs, gallops, or rubs. RESPIRATORY: Breath sounds equal bilaterally. No accessory muscle use. GASTROINTESTINAL: Abdomen soft, non-tender, nondistended. Mild abdominal pain on palpation of right upper quadrant. No epigastric tenderness. No rebound tenderness. No peritoneal signs. MUSCULOSKELETAL: No cyanosis, or edema. BACK: Nontender without obvious deformity. No CVA tenderness. (Ainsley Guerra MD R2) A/P Assessment and Plan 77 y/o F, hx of vertebral artery occlusion, Dixon esophagus and GERD, presents with acute right upper quadrant abdominal pain. Discharge Planning Pending evaluation of right upper quadrant pain (Ainsley Guerra MD R2) Attending Attestation Patient seen and examined 09/28. Case reviewed and discussed with patient, , resident team, Dr. Holland, GS Agree with plan of care as discussed with me and documented in the resident note. Will monitor abdominal pain, if recurs, consider outpatient GS referral for possible cholecystectomy once off Coumadin. Trend LFTs. Appreciate GI expertise. (Radha Mc MD) Problem List: (1) Elevated LFTs ICD Codes: R79.89 - Other specified abnormal findings of blood chemistry Status: Acute Plan: Physical exam findings on admission consistent with cholecystitis, however imaging did not confirm. May be indicative of obstruction GI following: Ordered nothing by mouth at midnight and panendoscopy to be scheduled, immunological studies ordered Flagyl IV q8h Started (09/28) AST/ALT: 27/33 on 09/10 (see in Jeffrey) AST/ALT: 138/106 on 09/26 with elevated white count of 17, vital signs stable AST/ALT: 1063/805 on 09/27, WBC down to 13 AST/ALT: 291/689 on 09/28, WBC remains at 13 Alkaline phosphatase normal, bilirubin normal May be due to gallbladder disease versus liver disease versus Tylenol toxicity Right upper quadrant ultrasound:negative CT abdomen: Negative HIDA: Poor all bladder contraction after CK K, otherwise negative BP right upper quadrant ultrasound: Multiple small gallstones, normal dimension of common hepatic duct (2) UTI (urinary tract infection) ICD Codes: N39.0 - Urinary tract infection, site not specified Status: Acute Plan: Presumed UTI on admission, however cultures negative D/C ABX UA: Large leuk esterase culture: 50-100,000 colonies (3) Vertebral artery dissection ICD Codes: I77.74 - Dissection of vertebral artery Plan: Continue ASA 325mg PO daily Due for CTA brain in November f/u neurology outpatient (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 without dysplasia Status: Chronic Plan: GERD and history of Dixon esophagus Follow-up results of endoscopy Cont PPI (5) Hypertension ICD Codes: I10 - Essential (primary) hypertension Status: Chronic Plan: BP well-controlled, continue home meds (6) Hypothyroidism ICD Codes: E03.9 - Hypothyroidism, unspecified Status: Acute Plan: TSH: .115 Home dose of Synthroid 88, pt has been on this dose x 6weeks Reduce dose to Synthroid 50 daily f/u in 6-8weeks as outpatient (7) Back pain ICD Codes: M54.9 - Dorsalgia, unspecified Status: Chronic Plan: Back pain intermittent 1 month Muscle spasm versus pathological process CT abdomen: Negative (8) fen/ppx Status: Acute Plan: Fluids: Encourage by mouth fluids Electrolytes: BMP normal, replete as needed Nutrition: By mouth diet as tolerated DVT prophylaxis: Continue anticoagulation with warfarin, INR 1.7 subtherapeutic Prophylaxis: Continue PPI (Ainsley Guerra MD R2) Ainsley Guerra MD R2 Sep 28, 2017 12:11 Radha Mc MD Sep 29, 2017 09:13
[2017-09-28 13:55] LABS: SMOOTH MUSCLE TOTAL AUTOABS Negative (Negative)
[2017-09-29 01:11] VITALS: BP 130/61; PULSE 63; RESP 16; TEMP 98; O2SAT 95
[2017-09-29] MEDS: SODIUM CHLOR 0.9% 1000 ML INJ 1,000 ML IV SCH (02:02)
[2017-09-29] MEDS: metroNIDAZOLE 500 MG INJ 100 ML IV SCH ×2 (02:02→10:09)
[2017-09-29 05:11] VITALS: BP 123/58; PULSE 68; RESP 16; TEMP 98; O2SAT 97
[2017-09-29] MEDS ORDERED: LEVOTHYROXINE SODIUM 50 MCG TAB PO SCH (06:00)
[2017-09-29 07:05] LABS: HEMATOCRIT 36.5 % (35.0-46.0); HEMOGLOBIN 12.4 GM/DL (11.6-15.3); MEAN CORPUSCULAR HEMOGLOBIN 30.9 PG (27.0-34.0); MEAN PLATELET VOLUME 8.7 FL (7.0-11.0); PLATELET COUNT 250 TH/MM3 (150-450); RED BLOOD COUNT 4.01 MIL/MM3 (4.00-5.30); RED CELL DISTRIBUTION WIDTH 13.6 % (11.6-17.2); WHITE BLOOD COUNT 12.4 TH/MM3 (4.0-11.0)
[2017-09-29 07:30] LABS: ALBUMIN 3.1 GM/DL (3.4-5.0); ALT (GPT) 406 U/L (10-53); AST (GOT) 105 U/L (15-37); BICARBONATE 27.3 MEQ/L (21.0-32.0); BLOOD UREA NITROGEN 10 MG/DL (7-18); CALCIUM 8.7 MG/DL (8.5-10.1); CHLORIDE 109 MEQ/L (98-107); CREATININE 0.69 MG/DL (0.50-1.00); GLOMERULAR FILTRATION RATE 82 ML/MIN (>89); GLUCOSE,RANDOM 80 MG/DL (74-106); SODIUM (NA) 142 MEQ/L (136-145)
[2017-09-29 07:32] LABS: ALKALINE PHOSPHATASE 87 U/L (45-117); TOTAL BILIRUBIN ADULT 0.5 MG/DL (0.2-1.0); TOTAL PROTEIN 6.4 GM/DL (6.4-8.2)
[2017-09-29 08:15] VITALS: BP 134/60; PULSE 62; RESP 18; TEMP 98.6; O2SAT 97
[2017-09-29] MEDS: LOSARTAN 50 MG TAB PO SCH (10:09)
[2017-09-29] MEDS: SODIUM CHLORIDE 0.9% FLUSH 10 ML FLUSH IV FLUSH SCH (10:09)
[2017-09-29] MEDS: PANTOPRAZOLE SOD 40 MG DELAYED RELEASE TAB PO SCH (10:09)
--- NOTE | 2017-09-29 12:06 | HHI.FPPN ---
Subjective Remarks Patient seen and examined this morning bedside. Patient is denying any abdominal pain today. Denying any nausea/vomiting. No chest pain or shortness of breath. Patient has been afebrile overnight with no acute events. (Ainsley Guerra MD R2) Objective Vitals Vital Signs Date Time Temp Pulse Resp B/P (MAP) Pulse Ox O2 Delivery O2 Flow Rate FiO2 09/29/17 08:15 98.6 62 18 134/60 (84) 97 09/29/17 05:11 98.0 68 16 123/58 (79) 97 09/29/17 01:11 98.0 63 16 130/61 (84) 95 09/28/17 21:22 97.6 71 16 122/66 (84) 94 09/28/17 15:48 98.6 67 18 141/62 (88) 98 09/28/17 12:42 98.0 63 18 139/85 (103) 97 I/O 09/28/17 09/28/17 09/28/17 09/29/17 09/29/17 09/29/17 07:00 15:00 23:00 07:00 15:00 23:00 Intake Total 700 ml Balance 700 ml Other 700 ml # Voids 2 1 (Ainsley Guerra MD R2) Result Diagram: 09/29/17 0649 09/29/17 0649 Objective Remarks GENERAL: No acute distress, vital signs stable SKIN: Warm and dry. HEAD: Normocephalic. EYES: No scleral icterus. No injection or drainage. NECK: Supple, trachea midline. No JVD or lymphadenopathy. CARDIOVASCULAR: Regular rate and rhythm without murmurs, gallops, or rubs. RESPIRATORY: Breath sounds equal bilaterally. No accessory muscle use. GASTROINTESTINAL: Abdomen soft, non-tender, nondistended. Mild abdominal pain on palpation of right upper quadrant. No epigastric tenderness. No rebound tenderness. No peritoneal signs. MUSCULOSKELETAL: No cyanosis, or edema. BACK: Nontender without obvious deformity. No CVA tenderness. (Ainsley Guerra MD R2) A/P Assessment and Plan 77 y/o F, hx of vertebral artery occlusion, Dixon esophagus and GERD, presents with acute right upper quadrant abdominal pain. Discharge Planning Discharged today pending coagulation studies and Hep C lab drawn (Ainlsey Guerra MD R2) Attending Attestation Patient seen and examined. Case reviewed and discussed Agree with plan of care as discussed with me and documented in the resident note. (Radha Mc MD) Problem List: (1) Elevated LFTs ICD Codes: R79.89 - Other specified abnormal findings of blood chemistry Status: Acute Plan: Physical exam findings on admission consistent with cholecystitis, however imaging did not confirm. May be indicative of obstruction GI following: Ordered nothing by mouth at midnight and panendoscopy to be scheduled, immunological studies ordered Flagyl IV q8h Started (09/28) AST/ALT: 27/33 on 09/10 (see in [place]) AST/ALT: 138/106 on 09/26 with elevated white count of 17, vital signs stable AST/ALT: 1063/805 on 09/27, WBC down to 13 AST/ALT: 291/689 on 09/28, WBC remains at 13 AST/ALT: 105/406 on 09/29, LE B the remains at 12.4 Alkaline phosphatase normal, bilirubin normal May be due to gallbladder disease versus liver disease versus Tylenol toxicity Right upper quadrant ultrasound:negative CT abdomen: Negative HIDA: Poor all bladder contraction after CK K, otherwise negative, only 25% functional gallbladder BP right upper quadrant ultrasound: Multiple small gallstones, normal dimension of common hepatic duct (2) UTI (urinary tract infection) ICD Codes: N39.0 - Urinary tract infection, site not specified Status: Resolved Plan: Presumed UTI on admission, however cultures negative D/C ABX UA: Large leuk esterase culture: 50-100,000 colonies (3) Vertebral artery dissection ICD Codes: I77.74 - Dissection of vertebral artery Plan: Continue ASA 325mg PO daily Due for CTA brain in November f/u neurology outpatient (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 without dysplasia Status: Chronic Plan: GERD and history of Dixon esophagus Follow-up results of endoscopy: Continues to see mild Dixon's, chronic gastritis Cont PPI (5) Hypertension ICD Codes: I10 - Essential (primary) hypertension Status: Chronic Plan: BP well-controlled, continue home meds (6) Hypothyroidism ICD Codes: E03.9 - Hypothyroidism, unspecified Status: Acute Plan: TSH: .115 Home dose of Synthroid 88, pt has been on this dose x 6weeks Reduce dose to Synthroid 50 daily f/u in 6-8weeks as outpatient (7) Back pain ICD Codes: M54.9 - Dorsalgia, unspecified Status: Chronic Plan: Back pain intermittent 1 month Muscle spasm versus pathological process CT abdomen: Negative (8) fen/ppx Status: Acute Plan: Fluids: Encourage by mouth fluids Electrolytes: BMP normal, replete as needed Nutrition: By mouth diet as tolerated DVT prophylaxis: Continue anticoagulation with warfarin, INR 1.7 subtherapeutic Prophylaxis: Continue PPI (Ainsley Guerra MD R2) Ainsley Guerra MD R2 Sep 29, 2017 12:06 Radha Mc MD Sep 30, 2017 10:09
--- NOTE | 2017-09-29 12:14 | HHI.DS ---
Discharge Summary Admission Date Sep 26, 2017 at 21:35 Discharge Date: Sep 29, 2017 Admitting Diagnosis abdominal pain (1) Elevated LFTs Plan: Physical exam findings on admission consistent with cholecystitis, however imaging did not confirm. May be indicative of obstruction GI following: Ordered nothing by mouth at midnight and panendoscopy to be scheduled, immunological studies ordered Flagyl IV q8h Started (09/28) AST/ALT: 27/33 on 09/10 (see in [place]) AST/ALT: 138/106 on 09/26 with elevated white count of 17, vital signs stable AST/ALT: 1063/805 on 09/27, WBC down to 13 AST/ALT: 291/689 on 09/28, WBC remains at 13 AST/ALT: 105/406 on 09/29, LE B the remains at 12.4 Alkaline phosphatase normal, bilirubin normal May be due to gallbladder disease versus liver disease versus Tylenol toxicity Right upper quadrant ultrasound:negative CT abdomen: Negative HIDA: Poor all bladder contraction after CK K, otherwise negative, only 25% functional gallbladder BP right upper quadrant ultrasound: Multiple small gallstones, normal dimension of common hepatic duct ICD Codes: R79.89 - Other specified abnormal findings of blood chemistry Status: Acute (2) UTI (urinary tract infection) Plan: Presumed UTI on admission, however cultures negative D/C ABX UA: Large leuk esterase culture: 50-100,000 colonies ICD Codes: N39.0 - Urinary tract infection, site not specified Status: Resolved (3) Vertebral artery dissection Plan: Continue ASA 325mg PO daily Due for CTA brain in November f/u neurology outpatient ICD Codes: I77.74 - Dissection of vertebral artery (4) Dixon esophagus Plan: GERD and history of Dixon esophagus Follow-up results of endoscopy: Continues to see mild Dixon's, chronic gastritis Cont PPI ICD Codes: K22.70 - Dixon's esophagus without dysplasia Status: Chronic (5) Hypertension Plan: BP well-controlled, continue home meds ICD Codes: I10 - Essential (primary) hypertension Status: Chronic (6) Hypothyroidism Plan: TSH: .115 Home dose of Synthroid 88, pt has been on this dose x 6weeks Reduce dose to Synthroid 50 daily f/u in 6-8weeks as outpatient ICD Codes: E03.9 - Hypothyroidism, unspecified Status: Acute (7) Back pain Plan: Back pain intermittent 1 month Muscle spasm versus pathological process CT abdomen: Negative ICD Codes: M54.9 - Dorsalgia, unspecified Status: Chronic (8) fen/ppx Plan: Fluids: Encourage by mouth fluids Electrolytes: BMP normal, replete as needed Nutrition: By mouth diet as tolerated DVT prophylaxis: Continue anticoagulation with warfarin, INR 1.7 subtherapeutic Prophylaxis: Continue PPI Status: Acute Brief History 77 y/o F, hx of GERD, vertebral dissection, comes in with abdominal pain. 6PM this evening she started to feel abdominal pain ; she was trying to sit down at dinner and felt like she couldn't eat. [place] sweaty. She has never felt like this before, and she decided to come into the ED. The pain started in the center of her abdomen and moved to the epigastric area. Denies any left-sided chest pain/dizzyness/confusion. She did feel like "she couldn't catch her breath " because of the pressure. For lunch today she had an egg, sandwich, deviled egg , and a mint chocolate. She has been having intermittent back pain x 1 month, diagnosed as muscle spasm by PCP. Her back pain is exacerbated by activity. SHe takes tylenol for the pain ; including 10 days ago when she would take max 4 tablets of 500mg tabs / day. She took 2 tylenol today, but no tylenol the 3 days prior. She has taken muscle relaxants very sparingly. CBC/BMP: 09/29/17 0649 09/29/17 0649 Significant Findings Laboratory Tests Test 09/26/17 19:37 09/26/17 19:45 09/27/17 01:54 09/27/17 07:18 White Blood Count 17.0 TH/MM3 (4.0-11.0) 13.5 TH/MM3 (4.0-11.0) Lymphocytes (%) (Auto) 76.1 % (9.0-44.0) 63.2 % (9.0-44.0) Lymphocytes # (Auto) 13.0 TH/MM3 (1.0-4.8) 8.5 TH/MM3 (1.0-4.8) Lymphocytes % 69 % (9-44) 56 % (9-44) Prothrombin Time 16.7 SEC (9.8-11.6) Aspartate Amino Transf (AST/SGOT) 138 U/L (15-37) 1063 U/L (15-37) Alanine Aminotransferase (ALT/SGPT) 106 U/L (10-53) 805 U/L (10-53) Estimat Glomerular Filtration Rate 56 ML/MIN (>89) 85 ML/MIN (>89) Troponin I LESS THAN 0.02 NG/ML LESS THAN 0.02 NG/ML LESS THAN 0.02 NG/ML Urine Occult Blood SMALL (NEG) Urine Leukocyte Esterase LARGE (NEG) Urine RBC 6 /hpf (0-3) Urine WBC 37 /hpf (0-5) Urine Bacteria OCC /hpf (NONE) Urine Mucus FEW /lpf (OCC) Red Blood Count 3.99 MIL/MM3 (4.00-5.30) Atypical Lymphocytes 11 % (0-0) Total Protein 6.2 GM/DL (6.4-8.2) Albumin 3.0 GM/DL (3.4-5.0) Calcium Level 8.0 MG/DL (8.5-10.1) Chloride Level 110 MEQ/L (98-107) Anion Gap 4 MEQ/L (5-15) Acetaminophen Level 2.3 MCG/ML (10.0-30.0) Test 09/27/17 14:00 09/28/17 05:40 09/29/17 06:49 09/29/17 11:38 Total Iron Binding Capacity 246 MCG/DL (250-450) Percent Iron Saturation 54.0 % (20-50) Thyroid Stimulating Hormone 3rd Gen 0.115 uIU/ML (0.358-3.740) White Blood Count 13.8 TH/MM3 (4.0-11.0) 12.4 TH/MM3 (4.0-11.0) Neutrophils (%) (Auto) 11.9 % (16.0-70.0) Lymphocytes (%) (Auto) 83.7 % (9.0-44.0) Neutrophils # (Auto) 1.6 TH/MM3 (1.8-7.7) Lymphocytes # (Auto) 11.5 TH/MM3 (1.0-4.8) Neutrophils % (Manual) 9 % (16-70) Lymphocytes % 89 % (9-44) Neutrophils # (Manual) 1.2 TH/MM3 (1.8-7.7) Aspartate Amino Transf (AST/SGOT) 291 U/L (15-37) 105 U/L (15-37) Alanine Aminotransferase (ALT/SGPT) 689 U/L (10-53) 406 U/L (10-53) Estimat Glomerular Filtration Rate 85 ML/MIN (>89) 82 ML/MIN (>89) Albumin 3.1 GM/DL (3.4-5.0) Chloride Level 109 MEQ/L (98-107) PE at Discharge GENERAL: No acute distress, vital signs stable SKIN: Warm and dry. HEAD: Normocephalic. EYES: No scleral icterus. No injection or drainage. NECK: Supple, trachea midline. No JVD or lymphadenopathy. CARDIOVASCULAR: Regular rate and rhythm without murmurs, gallops, or rubs. RESPIRATORY: Breath sounds equal bilaterally. No accessory muscle use. GASTROINTESTINAL: Abdomen soft, non-tender, nondistended. Mild abdominal pain on palpation of right upper quadrant. No epigastric tenderness. No rebound tenderness. No peritoneal signs. MUSCULOSKELETAL: No cyanosis, or edema. BACK: Nontender without obvious deformity. No CVA tenderness. Hospital Course 7 y/o F, hx of GERD, vertebral dissection, comes in with abdominal pain. Physical exam in emergency department was concerning for cholecystitis, however imaging did not confirm. GI was consulted. LFTs were trended and trended up on day 2, then back down by day of discharge. HIDA scan showed poor call bladder contraction and 25% functional gallbladder. He shouldn't is asymptomatic on day of discharge and recommended follow-up with GI as outpatient to schedule possible cholecystectomy and discussed risks and benefits of procedure. Patient was advised to return with any recurrent pain that is unremitting. Pt Condition on Discharge: Stable Discharge Disposition: Discharge Home Discharge Instructions DIET: Follow Instructions for: As Tolerated, No Restrictions Activities you can perform: Regular-No Restrictions Ainsley Guerra MD R2 Sep 29, 2017 12:14
--- NOTE | 2017-09-29 12:15 | HHI.DCPOC ---
Discharge Care Plan Diagnosis: (1) Dixon esophagus (2) UTI (urinary tract infection) (3) Abdominal pain (4) Elevated LFTs Goals to Promote Your Health * To prevent worsening of your condition and complications * To maintain your health at the optimal level Directions to Meet Your Goals Take your medications as prescribed Follow your dietary instruction Follow activity as directed Keep your appointments as scheduled Take your immunizations and boosters as scheduled If your symptoms worsen call your PCP, if no PCP go to Urgent Care Center or Emergency Room Smoking is Dangerous to Your Health. Avoid second hand smoke Call the 24-hour hour crisis hotline for domestic abuse at Ainsley Guerra MD R2 Sep 29, 2017 12:15 Radha Mc MD Sep 30, 2017 09:56
[2017-09-29 12:24] LABS: INTERNATIONAL NORMALIZED RATIO 1.5 RATIO; PROTHROMBIN TIME - PATIENT 14.8 SEC (9.8-11.6)
--- NOTE | 2017-09-29 13:03 | HHI.GIFU ---
Subjective Remarks Pt resting in bed in NAD. eager to go home. Planning on pursuing outpt cholecystectomy when she is off her coumadin. (Macy Pritchard) Objective Vitals I&O Vital Signs Date Time Temp Pulse Resp B/P (MAP) Pulse Ox O2 Delivery O2 Flow Rate FiO2 09/29/17 08:15 98.6 62 18 134/60 (84) 97 09/29/17 05:11 98.0 68 16 123/58 (79) 97 09/29/17 01:11 98.0 63 16 130/61 (84) 95 09/28/17 21:22 97.6 71 16 122/66 (84) 94 09/28/17 15:48 98.6 67 18 141/62 (88) 98 I/O 09/28/17 09/28/17 09/28/17 09/29/17 09/29/17 09/29/17 07:00 15:00 23:00 07:00 15:00 23:00 Intake Total 700 ml Balance 700 ml Other 700 ml # Voids 2 1 Laboratory Laboratory Tests Test 09/29/17 06:49 09/29/17 11:38 White Blood Count 12.4 Red Blood Count 4.01 Hemoglobin 12.4 Hematocrit 36.5 Mean Corpuscular Volume 91.0 Mean Corpuscular Hemoglobin 30.9 Mean Corpuscular Hemoglobin Concent 34.0 Red Cell Distribution Width 13.6 Platelet Count 250 Mean Platelet Volume 8.7 Blood Urea Nitrogen 10 Creatinine 0.69 Random Glucose 80 Total Protein 6.4 Albumin 3.1 Calcium Level 8.7 Alkaline Phosphatase 87 Aspartate Amino Transf (AST/SGOT) 105 Alanine Aminotransferase (ALT/SGPT) 406 Total Bilirubin 0.5 Sodium Level 142 Potassium Level 4.2 Chloride Level 109 Carbon Dioxide Level 27.3 Anion Gap 6 Estimat Glomerular Filtration Rate 82 Prothrombin Time 14.8 Prothromb Time International Ratio 1.5 Date/Time Source Procedure Growth Status 09/26/17 19:45 Urine Random Urine Urine Culture - Final 50-100,000 CFU/ML MIXED GRAM POSITIVE... Complete Imaging Last Impressions Gall Bladder Ultrasound 09/27/17 0800 Signed Impressions: Service Date/Time: Wednesday, September 27, 2017 08:54 - CONCLUSION: 1. Multiple small gallstones with normal dimension common hepatic duct. Cornelio Del Rio MD Hepatobiliary Scan Nuclear Medicine 09/27/17 0000 Signed Impressions: Service Date/Time: Wednesday, September 27, 2017 10:41 - CONCLUSION: Somewhat poor gallbladder contraction after cholecystokinin. Otherwise negative. Stewart Cortes MD Abdomen CT 09/26/176 Signed Impressions: Service Date/Time: Tuesday, September 26, 2017 23:21 - CONCLUSION: No acute CT findings in the abdomen Stewart Mitchell MD Chest X-Ray 09/26/17 1924 Signed Impressions: Service Date/Time: Tuesday, September 26, 2017 19:47 - CONCLUSION: No acute disease. Farhat Hyman MD Physical Exam HEENT: Pupils round and reactive to light; normocephalic; atraumatic; no jaundice. CHEST: Chest is clear to auscultation and percussion. CARDIAC: Regular rate and rhythm with no murmur gallop or rubs. ABDOMEN: Soft, nondistended, nontender; no hepatosplenomegaly; bowel sounds are present in all four quadrants. EXTREMITIES: No clubbing, cyanosis, or edema. SKIN: Normal; no rash; no jaundice. BOX WORKER: No focal deficits; alert and oriented times three. (Macy Pritchard) Assessment and Plan Plan ASSESSMENT - abd pain, elevated LFTs - unclear etiology. on admission AST 138, ALT 106, ALP 72, TBIL 0.4. LFTs have gone up today, bili WNL. APAP WNL. Lipase WNL. no prior hx problems with GB or liver. GB US normal, CT abd no acute findings. a HIDA scan is pending - lymphocytosis - unclear significance 09/29/17 liver w/u so far unremarkable, monoscreen neg. s/p EGD found esohpagitis, erythematous gastritis. HIDA showed poor GB contraction after cholecystikinin admission. US showed mult small gallstones. wants cholecystectomy outpt. denies abd pain today. LFTs trending down LFT elevation likely r/t GB PLAN - await liver w/u - await bx - monitor LFTs - f/u with GI after d/c - ok to d/c from GI standpoint. pt seen by myself and Dr Obrien and this note is on his behalf (Macy Pritchard) Physician Comments Seen and examined with KARISSA, doing well. No pain. Out patient fu with GI and surgery. (Chula Obrien MD) Macy Pritchard Sep 29, 2017 13:03 Chula Obrien MD Sep 29, 2017 16:32
[2017-09-29] MEDS ORDERED: WARFARIN SOD 5 MG TAB PO ONE (13:20)
[2017-09-30 13:53] LABS: HEPATITIS B CORE TOTAL AB NONREACTIVE (NON-REACTVE)
== END 2017-09-29 13:35 | disposition home or self-care (01) ==
LOC: NEPC 18:49 → NEDA 21:35 → NEPGCP 23:41
PROVIDERS: ADMIT Family Medicine; ATTEND Family Medicine
DX: K29.70 Gastritis, unspecified, without bleeding (principal); R79.89 Other specified abnormal findings of blood chemistry; I77.74 Dissection of vertebral artery; K22.70 Barrett's esophagus without dysplasia; N39.0 Urinary tract infection, site not specified; I10 Essential (primary) hypertension; E03.9 Hypothyroidism, unspecified; R74.0 Nonspecific elevation of levels of transaminase and lactic acid dehydrogenase [LDH]; K21.0 Gastro-esophageal reflux disease with esophagitis; N32.89 Other specified disorders of bladder; D72.820 Lymphocytosis (symptomatic); K80.10 Calculus of gallbladder with chronic cholecystitis without obstruction; R61 Generalized hyperhidrosis; M54.9 Dorsalgia, unspecified; M54.30 Sciatica, unspecified side; R93.5 Abnormal findings on diagnostic imaging of other abdominal regions, including retroperitoneum; Z85.828 Personal history of other malignant neoplasm of skin; Z86.73 Personal history of transient ischemic attack (TIA), and cerebral infarction without residual deficits; Z79.899 Other long term (current) drug therapy; Z79.01 Long term (current) use of anticoagulants
CPT/HCPCS: 00731; 43239; 71045; 74150; 76705; 78227; 80053; 80307; 81001; 82103; 82105; 83520; 83540; 83550; 83690; 84443; 84484; 85007; 85027; 85610; 85730; 86038; 86255; 86308; 86317; 86704; 87086; 87340; 88305; 88312; 93005; 96361; 96365; 96366; 96375; 99285; A9537; G0378; J0696; J1170; J2405; J2805; J7030

== ENCOUNTER → 2017-11-09 | Day surgery (SDC) | payer MEDICARE ==
[~2017-11-09] VITALS: Ht 160 cm; Wt 59.8 kg
[~2017-11-09] MED LIST changes: +*MEPERIDINE 25 MG INJ VIAL PERIprocedural Use ONLY ONE; +*morphine SULFATE 4 MG/ML PERIprocedure ONLY ONE; +ACETAMINOPHEN 1000 MG/100 ML 100 ML IV SCH; -ACYC800T PO; +BUPIVACAINE/EPINEPHRINE 0.25% 50 ML VIAL ONE; +CETI10TA71 PO; +CHLORHEXIDINE GLUCONATE 2 % 1 PACK (2 CLOTHS) TOPICAL PRN; -CHOL400D2 PO; +CYAN1TAB24 PO; +DEXAMETHASONE SOD PHOS 4 MG/ML VIAL IV ONE; +DO NOT ADM ANY ANTICOAGULANT DRUGS PRN; +FLUT1SPR5 EACH NARE; -FLUT50SP EACH NARE; +GLYCOPYRROLATE 1 MG/5 ML SYRINGE IV PUSH ONE; +HYDR-3516 PO; +KETO10 PO; +KETOROLAC TROMETHAMINE 30 MG/ML (IVP) VIAL IV PUSH ONE; +KETOROLAC TROMETHAMINE 30 MG/ML (IVP) VIAL ONE; +KETOROLAC TROMETHAMINE 60 MG/2 ML (IM) VIAL IM ONE; +LACTATED RINGER'S 1000 ML IV PRN; +LIDOCAINE HCL 1% PF 5 ML SYRINGE OTHER ONE; -MELO15TA20 PO; +METOPROLOL TARTRATE 25 MG TAB PO PRN; +MIDAZOLAM HCL 2 MG/2 ML VIAL ONE; +MORPHINE SULFATE 4 MG/ML INJ IV PUSH PRN; +NEOSTIGMINE 5 MG/5 ML SYRINGE IV PUSH ONE; +ONDANSETRON HCL 4 MG/2 ML VIAL IV ONE; +ONDANSETRON HCL 4 MG/2 ML VIAL IV PUSH PRN; +PHENYLEPH/NS 1000 MCG/10 ML SYR IV ONE; +POVIDONE IODINE 5% (ANTISEPSIS KIT) 4 APPLICATIONS EACH NARE PRN; +PROPOFOL 200 MG/20 ML AMP IV ONE; +ROCURONIUM INJ 50 MG/5 ML SYRINGE IV PUSH ONE; +SODIUM CHLORID 0.9% 500 ML IV PRN; +SODIUM CHLORIDE 0.9% FLUSH 10 ML FLUSH IV FLUSH PRN; +SODIUM CHLORIDE 0.9% FLUSH 10 ML FLUSH IV FLUSH SCH; -TIZA2CAP3 PO; +VITA1000 PO; +ceFAZolin 2 GM PREMIX 50 ML IV SCH; +ePHEDrine/NS 25 MG/5 ML SYRINGE IV ONE; +oxyCODONE/ACETAMINOPHEN 5 MG/325 MG TAB PO PRN
--- NOTE | 2017-11-09 12:03 | PD.OP ---
cc: Reynaldo Holland MD; Radha Mc MD Operative Report Date of Surgery: November 09, 2017 Preoperative Diagnosis: Chronic cholecystitis Postoperative Diagnosis: Chronic cholecystitis Procedure: Laparoscopic cholecystectomy Anesthesia: Laparoscopic cholecystic Surgeon: Reynaldo Holland Receipt And Report Clerk(s): None Operation and Findings: Operative findings: The patient was found to have a relatively normal-appearing gallbladder which was slightly thick-walled. There were no palpable stones within the lumen. The cystic duct and common bile duct were seen to be of normal caliber. No other abnormalities were noted. Operative procedure: Patient was brought to the operating room and after satisfactory general endotracheal anesthesia was obtained, the abdomen was prepped and draped in usual sterile fashion. 0.25% Marcaine with epinephrine was used to infiltrate the skin for local anesthesia. A small incision was made above the umbilicus and a 5 mm trocar inserted into the peritoneal cavity under direct visualization. The abdomen was distended to 15 mmHg using carbon dioxide after which the camera was reinserted and visceral injury inspected for , with none being identified. Under direct visualization a 12 port and a 5 port placed in the upper abdomen. The fundus of the gallbladder was grasped and retracted superiorly over the right lobe of the liver. Knox's pouch was then grasped and retracted inferiorly and laterally, placing tension on the hepatoduodenal ligament. Peritoneal attachments between the Knox's pouch or in the liver were taken down with a harmonic scalpel to allow more freedom of motion of the gallbladder. The cystic duct and cystic artery were both then dissected free bluntly to obtain the critical view. Once the critical view had been obtained the cystic artery was divided with the harmonic scalpel near its junction with the gallbladder. The cystic duct was then divided with the harmonic as well. The harmonic was then used to dissect the gallbladder free from the liver bed without problem. It was placed within an Endo Catch bag and brought externally and withdrawn without problem. The port was reinserted and the liver bed inspected and found to be hemostatic. The cystic duct and cystic artery stumps were both seen to be intact with no leakage of bile or blood. The carbon dioxide was vented as completely as possible the atmosphere after which the ports were removed and the skin closed with interrupted 4-0 PDS subcuticular stitches. Steri-Strips were applied the patient then awakened and taken from the operating room, in stable condition, having tolerated the procedure without problem. Estimated blood loss was less than 5 mL's. The instrument, sponge, needle counts were reported as being correct 2 at the end of the procedure. Reynaldo Holland MD November 09, 2017 12:03
[2017-11-09 13:56] VITALS: BP 110/62; PULSE 57; RESP 18; TEMP 96; O2SAT 100
== END | disposition home or self-care (01) ==
LOC: HSDC 07:55
PROVIDERS: ATTEND Surgery
DX: K81.1 Chronic cholecystitis (principal); R07.9 Chest pain, unspecified; H25.813 Combined forms of age-related cataract, bilateral; K21.9 Gastro-esophageal reflux disease without esophagitis; I70.209 Unspecified atherosclerosis of native arteries of extremities, unspecified extremity; H40.003 Preglaucoma, unspecified, bilateral; E78.5 Hyperlipidemia, unspecified; E06.3 Autoimmune thyroiditis; E03.9 Hypothyroidism, unspecified; M54.10 Radiculopathy, site unspecified; I10 Essential (primary) hypertension; E04.0 Nontoxic diffuse goiter; M54.30 Sciatica, unspecified side; H43.813 Vitreous degeneration, bilateral; H52.12 Myopia, left eye; M25.561 Pain in right knee
CPT/HCPCS: 00790; 47562; 88304; J0131; J0690; J1100; J1885; J2175; J2250; J2270; J2370; J2405; J2710; J3010; J7120

== ENCOUNTER 2017-11-12 02:40 | Emergency (ER) | payer MEDICARE ==
[~2017-11-12] VITALS: Ht 160 cm; Wt 60.0 kg
[~2017-11-12 02:40] MED LIST changes: -*MEPERIDINE 25 MG INJ VIAL PERIprocedural Use ONLY ONE; -*morphine SULFATE 4 MG/ML PERIprocedure ONLY ONE; -ACETAMINOPHEN 1000 MG/100 ML 100 ML IV SCH; -BUPIVACAINE/EPINEPHRINE 0.25% 50 ML VIAL ONE; -CHLORHEXIDINE GLUCONATE 2 % 1 PACK (2 CLOTHS) TOPICAL PRN; -DEXAMETHASONE SOD PHOS 4 MG/ML VIAL IV ONE; -DO NOT ADM ANY ANTICOAGULANT DRUGS PRN; -GLYCOPYRROLATE 1 MG/5 ML SYRINGE IV PUSH ONE; -HYDR-3516 PO; -KETO10 PO; -KETOROLAC TROMETHAMINE 30 MG/ML (IVP) VIAL IV PUSH ONE; -KETOROLAC TROMETHAMINE 30 MG/ML (IVP) VIAL ONE; -KETOROLAC TROMETHAMINE 60 MG/2 ML (IM) VIAL IM ONE; -LACTATED RINGER'S 1000 ML IV PRN; -LIDOCAINE HCL 1% PF 5 ML SYRINGE OTHER ONE; -METOPROLOL TARTRATE 25 MG TAB PO PRN; -MIDAZOLAM HCL 2 MG/2 ML VIAL ONE; -MORPHINE SULFATE 4 MG/ML INJ IV PUSH PRN; -NEOSTIGMINE 5 MG/5 ML SYRINGE IV PUSH ONE; -ONDANSETRON HCL 4 MG/2 ML VIAL IV ONE; -ONDANSETRON HCL 4 MG/2 ML VIAL IV PUSH PRN; -PHENYLEPH/NS 1000 MCG/10 ML SYR IV ONE; -POVIDONE IODINE 5% (ANTISEPSIS KIT) 4 APPLICATIONS EACH NARE PRN; -PROPOFOL 200 MG/20 ML AMP IV ONE; -ROCURONIUM INJ 50 MG/5 ML SYRINGE IV PUSH ONE; -SODIUM CHLORID 0.9% 500 ML IV PRN; -SODIUM CHLORIDE 0.9% FLUSH 10 ML FLUSH IV FLUSH PRN; -SODIUM CHLORIDE 0.9% FLUSH 10 ML FLUSH IV FLUSH SCH; -ceFAZolin 2 GM PREMIX 50 ML IV SCH; -ePHEDrine/NS 25 MG/5 ML SYRINGE IV ONE; -oxyCODONE/ACETAMINOPHEN 5 MG/325 MG TAB PO PRN
[2017-11-12 03:00] VITALS: BP 179/77; PULSE 80; RESP 20; TEMP 97.8; O2SAT 98
--- NOTE | 2017-11-12 04:05 | PD ---
HPI Chief Complaint: Abdominal Pain Time Seen by Provider: 03:41 Travel History International Travel<30 days: No Contact w/Intl Traveler<30days: No Traveled to known affect area: No History of Present Illness HPI 77-year-old female complains of abdominal pain. Patient status post laparoscopic cholecystectomy 3 days ago. Patient states that she started having abdominal cramping and constipation yesterday. Patient states that she took more magnesium and had loose stool and diarrhea subsequently. Patient states that she started having more severe abdominal cramping since then. Patient denies any headache. Patient denies any chest pain or shortness of breath. Patient states that abdominal pain and cramping pain diffuse over the abdomen. Patient states that the pain is more severe on the right lower quadrant of the abdomen. Patient denies any back pain. Patient denies any fever chills. Patient denies any dysuria frequency. Patient denies any vaginal discharge or bleeding. PFSH Past Medical History Blood Disorders: No Cancer: Yes (SKIN) Cardiovascular Problems: No Chemotherapy: No Cerebrovascular Accident: Yes Diabetes: No Diminished Hearing: No Endocrine: Yes Gastrointestinal Disorders: Yes (GERD) GERD: Yes Genitourinary: Yes (UTI once a year) Hepatitis: No Hiatal Hernia: No Hypertension: Yes Immune Disorder: No Implanted Vascular Access Dvce: Yes Musculoskeletal: Yes (arthritis) Neurologic: Yes (dissected vertebral artery, cva) Psychiatric: No Reproductive: No Respiratory: No Radiation Therapy: No Thyroid Disease: Yes (HYPO) Influenza Vaccination: Yes Past Surgical History Abdominal Surgery: No AICD: No Body Medical Devices: DENTAL/PLATE, SCREW L TOE Cardiac Surgery: No Cholecystectomy: Yes Ear Surgery: No Endocrine Surgery: No Eye Surgery: Yes (torn retina L eye-repaired via laser) Genitourinary Surgery: No Gynecologic Surgery: No Joint Replacement: No Oral Surgery: Yes (tonsillectomy) Pacemaker: No Thoracic Surgery: No Other Surgery: Yes (BILATERAL BUNIONECTOMIES FROM FEET.) Social History Alcohol Use: No Tobacco Use: No Substance Use: No Allergies-Medications (Allergen,Severity, Reaction): Coded Allergies: ciprofloxacin (Verified Allergy, Severe, Rash, 11/12/17) latex (Verified Allergy, Severe, Rash & Swelling, 11/12/17) codeine (Verified Allergy, Mild, 11/12/17) Reported Meds & Prescriptions Reported Meds & Active Scripts Active Tramadol (Tramadol HCl) 50 Mg Tab 50 Mg PO Q8H PRN Take 1/2 tab as needed every 8 hours for pain Levothyroxine (Levothyroxine Sodium) 88 Mcg Tab 88 Mcg PO DAILY Losartan (Losartan Potassium) 50 Mg Tab 50 Mg PO DAILY Pantoprazole (Pantoprazole Sodium) 40 Mg Tab 40 Mg PO DAILY Reported All Day Allergy (Cetirizine HCl) 10 Mg Tab 10 Mg PO DAILY PRN Flonase Nasal [place] (Fluticasone Nasal [place]) 50 Mcg/Act [place] 50 Mcg EACH NARE BID PRN Aspirin 325 Mg Tab 325 Mg PO DAILY B12 (Cyanocobalamin) 1,000 Mcg Tab 3,001 Mcg PO DAILY Multiple Vitamin 1 Tab 1 Tab PO DAILY Vitamin D-1000 (Cholecalciferol) 1,000 Unit Tab 2,000 Units PO DAILY Review of Systems General / Constitutional: No: Fever Eyes: No: Visual changes HENT: No: Headaches Cardiovascular: No: Chest Pain or Discomfort Respiratory: No: Shortness of Breath Gastrointestinal: Positive: Abdominal Pain Genitourinary: No: Dysuria Musculoskeletal: No: Pain Skin: No Rash Neurologic: No: Weakness Psychiatric: No: Depression Endocrine: No: Polydipsia Hematologic/Lymphatic: No: Easy Bruising Physical Exam Narrative GENERAL: Well-nourished, well-developed patient. SKIN: Focused skin assessment warm/dry. HEAD: Normocephalic. EYES: No scleral icterus. No injection or drainage. NECK: Supple, trachea midline. No JVD or lymphadenopathy. CARDIOVASCULAR: Regular rate and rhythm without murmurs, gallops, or rubs. RESPIRATORY: Breath sounds equal bilaterally. No accessory muscle use. GASTROINTESTINAL: Abdomen soft, nondistended. Patient has moderate tenderness on palpation right upper quadrant and right lower quadrant of the abdomen. No rebound tenderness. No mass. MUSCULOSKELETAL: No cyanosis, or edema. BACK: Nontender without obvious deformity. No CVA tenderness. Neurologic exam normal. Data Data Last Documented VS Vital Signs Date Time Temp Pulse Resp B/P (MAP) Pulse Ox O2 Delivery O2 Flow Rate FiO2 11/12/17 03:00 97.8 80 20 179/77 (111) 98 Room Air Orders Orders Complete Blood Count With Diff (11/12/17 04:00) Comprehensive Metabolic Panel (11/12/17 04:00) Prothrombin Time / Inr (Pt) (11/12/17 04:00) Act Partial Throm Time (Ptt) (11/12/17 04:00) Lipase (11/12/17 04:00) Urinalysis - C+S If Indicated (11/12/17 04:00) Ct Abd/Pel W Iv Contrast(Rout) (11/12/17 04:00) Iv Access Insert/Monitor (11/12/17 04:00) Ecg Monitoring (11/12/17 04:00) Oximetry (11/12/17 04:00) Sodium Chlor 0.9% 1000 Ml Inj (Ns 1000 M (11/12/17 04:15) Morphine Inj (Morphine Inj) (11/12/17 04:15) Ondansetron Odt (Zofran Odt) (11/12/17 04:15) Iohexol 350 Inj (Omnipaque 350 Inj) (11/12/17 05:53) Labs Laboratory Tests Test 11/12/17 04:11 White Blood Count 20.4 TH/MM3 Red Blood Count 4.35 MIL/MM3 Hemoglobin 13.3 GM/DL Hematocrit 39.4 % Mean Corpuscular Volume 90.5 FL Mean Corpuscular Hemoglobin 30.5 PG Mean Corpuscular Hemoglobin Concent 33.7 % Red Cell Distribution Width 14.8 % Platelet Count 306 TH/MM3 Mean Platelet Volume 9.9 FL Neutrophils (%) (Auto) 23.2 % Lymphocytes (%) (Auto) 72.4 % Monocytes (%) (Auto) 3.9 % Eosinophils (%) (Auto) 0.1 % Basophils (%) (Auto) 0.4 % Neutrophils # (Auto) 4.7 TH/MM3 Lymphocytes # (Auto) 14.8 TH/MM3 Monocytes # (Auto) 0.8 TH/MM3 Eosinophils # (Auto) 0.0 TH/MM3 Basophils # (Auto) 0.1 TH/MM3 CBC Comment AUTO DIFF Differential Total Cells Counted 100 Neutrophils % (Manual) 14 % Band Neutrophils % 1 % Lymphocytes % 82 % Monocytes % 2 % Basophils % 1 % Neutrophils # (Manual) 3.1 TH/MM3 Differential Comment FINAL DIFF MANUAL Smudge Cells PRESENT Platelet Estimate NORMAL Platelet Morphology Comment ENLARGED Red Cell Morphology Comment NORMAL Prothrombin Time 10.1 SEC Prothromb Time International Ratio 1.0 RATIO Activated Partial Thromboplast Time 22.6 SEC Blood Urea Nitrogen 15 MG/DL Creatinine 0.94 MG/DL Random Glucose 102 MG/DL Total Protein 7.8 GM/DL Albumin 4.2 GM/DL Calcium Level 9.3 MG/DL Alkaline Phosphatase 93 U/L Aspartate Amino Transf (AST/SGOT) 80 U/L Alanine Aminotransferase (ALT/SGPT) 100 U/L Total Bilirubin 0.6 MG/DL Sodium Level 137 MEQ/L Potassium Level 3.7 MEQ/L Chloride Level 100 MEQ/L Carbon Dioxide Level 27.5 MEQ/L Anion Gap 10 MEQ/L Estimat Glomerular Filtration Rate 58 ML/MIN Lipase 117 U/L MDM Medical Decision Making Medical Screen Exam Complete: Yes Emergency Medical Condition: Yes Interpretation(s) Last Impressions Abdomen/Pelvis CT 11/12/17 0400 Signed Impressions: Service Date/Time: Sunday, November 12, 2017 05:44 - CONCLUSION: 1. Small volume pneumoperitoneum and ascites consistent with postsurgical changes relating to the recent laparoscopic cholecystectomy. No fluid collection or hematoma seen within the gallbladder fossa. 2. Colonic diverticulosis without acute inflammation. 3. Large gonadal veins and pelvic varicosities bilaterally. 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 Cornelio Quezada Jr., MD 6:58 AM. CBC WBC 20.4. 72 lymphocytes. CMP with AST 80. ALT 100. Differential Diagnosis Differential diagnosis including abdominal pain secondary to surgery, bowel obstruction, ileus, hematoma, seroma. Narrative Course 77-year-old male with increased abdominal pain. Status post laparoscopic cholecystectomy 3 days ago. Diagnosis Primary Impression: Abdominal colic Additional Impression: Status post laparoscopic cholecystectomy Patient Instructions: General Instructions Additional Instructions: Continue with ketorolac for pain. Follow-up with personal physician. Return if increased abdominal pain, fever, persistent vomiting. Med/Other Pt SpecificInfo: No Change to Meds Disposition: 01 DISCHARGE HOME Condition: Stable Dion Martínez MD November 12, 2017 04:05
[2017-11-12] MEDS ORDERED: MORPHINE SULFATE 4 MG/ML INJ IV PUSH ONE (04:15)
[2017-11-12] MEDS ORDERED: SODIUM CHLOR 0.9% 1000 ML INJ 1,000 ML IV SCH (04:15)
[2017-11-12] MEDS ORDERED: ONDANSETRON ODT 4 MG TAB PO ONE (04:15)
[2017-11-12 04:31] LABS: AUTOMATED NEUTROPHIL # 4.7 TH/MM3 (1.8-7.7); BASOPHIL # 0.1 TH/MM3 (0-0.2); BASOPHIL % 0.4 % (0.0-2.0); EOSINOPHIL % 0.1 % (0.0-4.0); HEMATOCRIT 39.4 % (35.0-46.0); HEMOGLOBIN 13.3 GM/DL (11.6-15.3); LYMPH % 72.4 % (9.0-44.0); LYMPHOCYTE # 14.8 TH/MM3 (1.0-4.8); MEAN CELL VOLUME 90.5 FL (80.0-100.0); MEAN CORPUSCULAR HEMOGLOBIN 30.5 PG (27.0-34.0); MEAN CORPUSCULAR HGB CONC 33.7 % (32.0-36.0); MEAN PLATELET VOLUME 9.9 FL (7.0-11.0); MONO % 3.9 % (0.0-8.0); MONOCYTE # 0.8 TH/MM3 (0-0.9); NEUT % 23.2 % (16.0-70.0); PLATELET COUNT 306 TH/MM3 (150-450); RED BLOOD COUNT 4.35 MIL/MM3 (4.00-5.30); RED CELL DISTRIBUTION WIDTH 14.8 % (11.6-17.2); WHITE BLOOD COUNT 20.4 TH/MM3 (4.0-11.0)
[2017-11-12 04:48] LABS: PROTHROMBIN TIME - PATIENT 10.1 SEC (9.8-11.6)
[2017-11-12 04:57] LABS: ALBUMIN 4.2 GM/DL (3.4-5.0); ALT (GPT) 100 U/L (10-53); AST (GOT) 80 U/L (15-37); BICARBONATE 27.5 MEQ/L (21.0-32.0); BLOOD UREA NITROGEN 15 MG/DL (7-18); CALCIUM 9.3 MG/DL (8.5-10.1); CHLORIDE 100 MEQ/L (98-107); CREATININE 0.94 MG/DL (0.50-1.00); GLOMERULAR FILTRATION RATE 58 ML/MIN (>89); GLUCOSE,RANDOM 102 MG/DL (74-106); SODIUM (NA) 137 MEQ/L (136-145)
[2017-11-12 04:59] LABS: ALKALINE PHOSPHATASE 93 U/L (45-117); TOTAL BILIRUBIN ADULT 0.6 MG/DL (0.2-1.0); TOTAL PROTEIN 7.8 GM/DL (6.4-8.2)
[2017-11-12] MEDS ORDERED: IOHEXOL 350 MG/ML 10 ML VIAL (for RAD DIAG) IVCONTRAST ONE (05:53)
--- NOTE | 2017-11-12 06:24 | RADRPT ---
EXAM DATE/TIME: 11/12/2017 05:44 [facility] COMPARISON: No previous studies available for comparison. INDICATIONS : Abdominal pain status post laparoscopic cholecystectomy three days ago. IV CONTRAST: 100 cc Omnipaque 350 (iohexol) IV ORAL CONTRAST: No oral contrast ingested. RADIATION DOSE: 6.64 CTDIvol (mGy) MEDICAL HISTORY : Gastroesophageal reflux disease. SURGICAL HISTORY : Cholecystectomy. ENCOUNTER: Initial ACUITY: 3 days PAIN SCALE: 5/10 LOCATION: abdomen TECHNIQUE: Volumetric scanning of the abdomen and pelvis was performed. Using automated exposure control and ad justment of the mA and/or kV according to patient size, radiation dose was kept as low as reasonably achievable to obtain optimal diagnostic quality images. DICOM format image data is available electro nically for review and comparison. FINDINGS: LOWER LUNGS: The visualized lower lungs are clear. LIVER: Homogeneous density without lesion. There is no dilation of the biliary tree. The gallbladder is jose juan gically absent. No hematoma or fluid within the gallbladder fossa. Trace amount of free fluid adjacen t to the right lateral margin of the liver. SPLEEN: Normal size without lesion. PANCREAS: Within normal limits. KIDNEYS: Normal in size and shape. There is no mass, stone or hydronephrosis. ADRENAL GLANDS: Within normal limits. VASCULAR: There is no aortic aneurysm. BOWEL/MESENTERY: Scattered pneumoperitoneum in this patient that is status post laparoscopic cholecystectomy. Trace am ount of free fluid adjacent to the right lateral margin of the liver. Scattered colonic diverticuli w ithout acute inflammation. Trace amount of free fluid deep within the cul-de-sac. ABDOMINAL WALL: Small amount of subcutaneous air within the intra-abdominal wall near the level of the umbilicus. RETROPERITONEUM: There is no lymphadenopathy. BLADDER: No wall thickening or mass. REPRODUCTIVE: Large gonadal veins are noted bilaterally with varicosities involving the pelvis bilaterally. The janae sharita is within the midline. INGUINAL: There is no lymphadenopathy or hernia. MUSCULOSKELETAL: Within normal limits for patient age. CONCLUSION: 1. Small volume pneumoperitoneum and ascites consistent with postsurgical changes relating to the rec ent laparoscopic cholecystectomy. No fluid collection or hematoma seen within the gallbladder fossa. 2. Colonic diverticulosis without acute inflammation. 3. Large gonadal veins and pelvic varicosities bilaterally. This can be seen in pelvic congestion syn drome. Cornelio Quezada Jr., MD on November 12, 2017 at 6:19 Board Certified Radiologist. This report was verified electronically.
[2017-11-12 06:28] LABS: BANDS 1 % (0-6); BASOPHILS 1 % (0-2); LYMPHOCYTES 82 % (9-44); MONOCYTES 2 % (0-8); NEUTROPHIL # MANUAL DIFF 3.1 TH/MM3 (1.8-7.7); POLYS (SEG NEUTROPHILS) 14 % (16-70)
[2017-11-12 06:30] LABS: SMUDGE CELLS PRESENT PRESENT
[2017-11-13] MEDS ORDERED: KETO10 PO (09:47)
[2017-11-13] MEDS ORDERED: HYDR-3516 PO (09:47)
== END 2017-11-12 07:24 | disposition home or self-care (01) ==
LOC: NEPC 02:40
DX: R10.9 Unspecified abdominal pain (principal); I86.2 Pelvic varices; K57.30 Diverticulosis of large intestine without perforation or abscess without bleeding; K21.9 Gastro-esophageal reflux disease without esophagitis; Z90.49 Acquired absence of other specified parts of digestive tract
CPT/HCPCS: 74177; 80053; 83690; 85007; 85027; 85610; 85730; 96374; 99284; J2270; J7030; Q9967

== ENCOUNTER 2017-11-13 09:23 | Emergency (ER) | payer MEDICARE ==
[~2017-11-13] VITALS: Ht 160 cm; Wt 61.0 kg
[2017-11-13 09:26] VITALS: BP 155/74; PULSE 93; RESP 16; TEMP 97.7; O2SAT 96
[2017-11-13] MEDS ORDERED: KETO10 PO (09:47)
[2017-11-13] MEDS ORDERED: HYDR-3516 PO (09:47)
[2017-11-13] MEDS ORDERED: DICYCLOMINE HCL 10 MG CAP PO ONE (10:00)
--- NOTE | 2017-11-13 10:04 | PD ---
HPI Chief Complaint: Complaint Time Seen by Provider: 09:36 Travel History International Travel<30 days: No Contact w/Intl Traveler<30days: No Traveled to known affect area: No History of Present Illness HPI Patient is a 77 year old female who comes in complaining of a possible urinary tract infection. She had her gallbladder removed on Wednesday and has been having issues with abdominal pain since. She says she thought she was constipated, so she took some Milk of Magnesia. She then had diarrhea and took Imodium. Now she feels like she is having trouble urinating. She says she has some burning. She denies fevers. She took a Lortab for pain yesterday and did not like the way it made her feel. She was seen in the ED yesterday and had labs and a CT performed. The CT showed normal post-surgical changes, no other issues. She came back today due to a concern about a UTI. Her urine was not checked yesterday. Severity is mild. PFSH Past Medical History Blood Disorders: No Cancer: Yes (SKIN) Cardiovascular Problems: No Chemotherapy: No Cerebrovascular Accident: Yes Diabetes: No Diminished Hearing: No Endocrine: Yes Gastrointestinal Disorders: Yes (GERD) GERD: Yes Genitourinary: Yes (UTI once a year) Hepatitis: No Hiatal Hernia: No Hypertension: Yes Immune Disorder: No Implanted Vascular Access Dvce: Yes Musculoskeletal: Yes (arthritis) Neurologic: Yes (dissected vertebral artery, cva) Psychiatric: No Reproductive: No Respiratory: No Radiation Therapy: No Thyroid Disease: Yes (HYPO) Past Surgical History Abdominal Surgery: No AICD: No Body Medical Devices: DENTAL/PLATE, SCREW L TOE Cardiac Surgery: No Cholecystectomy: Yes Ear Surgery: No Endocrine Surgery: No Eye Surgery: Yes (torn retina L eye-repaired via laser) Genitourinary Surgery: No Gynecologic Surgery: No Joint Replacement: No Oral Surgery: Yes (tonsillectomy) Pacemaker: No Thoracic Surgery: No Other Surgery: Yes (BILATERAL BUNIONECTOMIES FROM FEET.) Social History Alcohol Use: No Tobacco Use: No Substance Use: No Allergies-Medications (Allergen,Severity, Reaction): Coded Allergies: ciprofloxacin (Verified Allergy, Severe, Rash, 11/13/17) latex (Verified Allergy, Severe, Rash & Swelling, 11/13/17) codeine (Verified Allergy, Mild, 11/13/17) Reported Meds & Prescriptions Reported Meds & Active Scripts Active Levothyroxine (Levothyroxine Sodium) 88 Mcg Tab 88 Mcg PO DAILY Losartan (Losartan Potassium) 50 Mg Tab 50 Mg PO DAILY Pantoprazole (Pantoprazole Sodium) 40 Mg Tab 40 Mg PO DAILY Reported Ketorolac (Ketorolac Tromethamine) 10 Mg Tab 10 Mg PO Q6HR PRN Hydrocodone-Acetaminophen 5-325 mg Tab 1 Tab PO Q6H PRN All Day Allergy (Cetirizine HCl) 10 Mg Tab 10 Mg PO DAILY PRN Flonase Nasal [place] (Fluticasone Nasal [place]) 50 Mcg/Act [place] 50 Mcg EACH NARE BID PRN Aspirin 325 Mg Tab 325 Mg PO DAILY B12 (Cyanocobalamin) 1,000 Mcg Tab 3,001 Mcg PO DAILY Multiple Vitamin 1 Tab 1 Tab PO DAILY Vitamin D-1000 (Cholecalciferol) 1,000 Unit Tab 2,000 Units PO DAILY Review of Systems Except as stated in HPI: all other systems reviewed are Neg General / Constitutional: No: Fever HENT: No: Headaches, Lightheadedness Cardiovascular: No: Chest Pain or Discomfort Respiratory: No: Shortness of Breath Gastrointestinal: Positive: Abdominal Pain, Constipation Genitourinary: Positive: Dysuria Skin: No Rash, No Change in Pigmentation Neurologic: No: Weakness, Dizziness Physical Exam Narrative GENERAL: Awake and alert, in no acute distress. SKIN: Focused skin assessment warm/dry. Well healing surgical wounds on the abdomen. HEAD: Atraumatic. Normocephalic. EYES: Pupils equal and round. No scleral icterus. ENT: No nasal bleeding or discharge. Mucous membranes pink and moist. NECK: Trachea midline. No JVD. CARDIOVASCULAR: Regular rate and rhythm. No murmur appreciated. RESPIRATORY: No accessory muscle use. Clear to auscultation. Breath sounds equal bilaterally. GASTROINTESTINAL: Abdomen soft, nondistended. Mild tenderness to the right side of the abdomen and the suprapubic region. No rebound or guarding. MUSCULOSKELETAL: No obvious deformities. No clubbing. No cyanosis. No edema. NEUROLOGICAL: Awake and alert. No obvious cranial nerve deficits. Motor grossly within normal limits. Normal speech. PSYCHIATRIC: Appropriate mood and affect; insight and judgment normal. Data Data Last Documented VS Vital Signs Date Time Temp Pulse Resp B/P (MAP) Pulse Ox O2 Delivery O2 Flow Rate FiO2 11/13/17 11:15 78 18 141/73 (95) 97 Room Air 11/13/17 09:26 97.7 Orders Orders Complete Blood Count With Diff (11/13/17 09:46) Comprehensive Metabolic Panel (11/13/17 09:46) Urinalysis - C+S If Indicated (11/13/17 09:46) Dicyclomine (Bentyl) (11/13/17 10:00) Us Abdomen Gallbladder (11/13/17 ) Labs Laboratory Tests Test 11/13/17 09:45 11/13/17 09:50 Urine Collection Type CLEAN CATCH Urine Color YELLOW Urine Turbidity CLEAR Urine pH 5.5 Urine Specific [employer] LESS/EQUAL 1.005 Urine Protein NEG mg/dL Urine Glucose (UA) NEG mg/dL Urine Ketones NEG mg/dL Urine Occult Blood SMALL Urine Nitrite NEG Urine Bilirubin NEG Urine Urobilinogen 0.2 MG/DL Urine Leukocyte Esterase NEG Urine RBC 4-9 /hpf Urine Squamous Epithelial Cells 0-5 /hpf Microscopic Urinalysis Comment CULT NOT INDICATED Urine Collection Time 09:45 White Blood Count 17.4 TH/MM3 Red Blood Count 4.35 MIL/MM3 Hemoglobin 13.4 GM/DL Hematocrit 39.3 % Mean Corpuscular Volume 90.4 FL Mean Corpuscular Hemoglobin 30.8 PG Mean Corpuscular Hemoglobin Concent 34.0 % Red Cell Distribution Width 14.0 % Platelet Count 276 TH/MM3 Mean Platelet Volume 9.2 FL CBC Comment AUTO DIFF Differential Total Cells Counted 100 Neutrophils % (Manual) 27 % Lymphocytes % 68 % Monocytes % 4 % Basophils % 1 % Neutrophils # (Manual) 4.7 TH/MM3 Differential Comment FINAL DIFF MANUAL Platelet Estimate NORMAL Platelet Morphology Comment NORMAL Blood Urea Nitrogen 8 MG/DL Creatinine 0.83 MG/DL Random Glucose 105 MG/DL Total Protein 7.5 GM/DL Albumin 3.7 GM/DL Calcium Level 9.1 MG/DL Alkaline Phosphatase 174 U/L Aspartate Amino Transf (AST/SGOT) 192 U/L Alanine Aminotransferase (ALT/SGPT) 285 U/L Total Bilirubin 1.8 MG/DL Sodium Level 132 MEQ/L Potassium Level 3.7 MEQ/L Chloride Level 97 MEQ/L Carbon Dioxide Level 28.5 MEQ/L Anion Gap 7 MEQ/L Estimat Glomerular Filtration Rate 67 ML/MIN MDM Medical Decision Making Medical Screen Exam Complete: Yes Emergency Medical Condition: Yes Medical Record Reviewed: Yes Differential Diagnosis UTI versus retained gallstone versus constipation versus electrolyte abnormality Narrative Course Patient is a 77-year-old female who comes in complaining of possible urinary tract infection. Exam shows well healing surgical scars, mild right-sided abdominal tenderness. IV established, labs sent. Labs show white blood cell count to be trending down from yesterday. LFTs are elevated. Ultrasound of the right upper quadrant shows no acute abnormalities. Patient was given a Bentyl, with some relief of her symptoms. Urinalysis is negative for UTI. She is advised of her results. She is comfortable going home at this time. She will follow-up with her surgeon. Advised to return as needed for any worsening symptoms. Diagnosis Primary Impression: Abdominal pain Qualified Codes: R10.84 - Generalized abdominal pain Patient Instructions: Abdominal Pain (ED), General Instructions Additional Instructions: Follow-up with your surgeon. Take pain medicine as needed. Return to the ED as needed for any worsening symptoms. Disposition: 01 DISCHARGE HOME Condition: Stable Tran Holley MD November 13, 2017 10:04
[2017-11-13 10:05] LABS: HEMATOCRIT 39.3 % (35.0-46.0); HEMOGLOBIN 13.4 GM/DL (11.6-15.3); MEAN CELL VOLUME 90.4 FL (80.0-100.0); MEAN CORPUSCULAR HEMOGLOBIN 30.8 PG (27.0-34.0); MEAN PLATELET VOLUME 9.2 FL (7.0-11.0); PLATELET COUNT 276 TH/MM3 (150-450); RED BLOOD COUNT 4.35 MIL/MM3 (4.00-5.30); WHITE BLOOD COUNT 17.4 TH/MM3 (4.0-11.0)
[2017-11-13 10:06] LABS: BILIRUBIN, URINE NEG (NEG); BLOOD, URINE SMALL (NEG); GLUCOSE,URINE NEG (NEG); KETONE, URINE NEG (NEG); NITRITE,URINE NEG (NEG); PH, URINE 5.5 (5.0-8.5); URINE COLOR YELLOW (YELLW/STRAW); URINE LEUKOCYTE ESTERASE NEG (NEG)
[2017-11-13 10:12] LABS: SQUAMOUS EPITHELIAL CELL URINE 0-5 /hpf (0-5)
[2017-11-13 10:14] LABS: CHLORIDE 97 MEQ/L (98-107); SODIUM (NA) 132 MEQ/L (136-145)
[2017-11-13 10:17] LABS: CALCIUM 9.1 MG/DL (8.5-10.1)
[2017-11-13 10:18] LABS: ALBUMIN 3.7 GM/DL (3.4-5.0); BICARBONATE 28.5 MEQ/L (21.0-32.0); BLOOD UREA NITROGEN 8 MG/DL (7-18); GLUCOSE,RANDOM 105 MG/DL (74-106)
[2017-11-13 10:21] LABS: ALT (GPT) 285 U/L (10-53); AST (GOT) 192 U/L (15-37); CREATININE 0.83 MG/DL (0.50-1.00); GLOMERULAR FILTRATION RATE 67 ML/MIN (>89)
[2017-11-13 10:22] LABS: TOTAL BILIRUBIN ADULT 1.8 MG/DL (0.2-1.0)
[2017-11-13 10:23] LABS: TOTAL PROTEIN 7.5 GM/DL (6.4-8.2)
[2017-11-13 10:24] LABS: ALKALINE PHOSPHATASE 174 U/L (45-117)
[2017-11-13 10:33] LABS: BASOPHILS 1 % (0-2); LYMPHOCYTES 68 % (9-44); MONOCYTES 4 % (0-8); NEUTROPHIL # MANUAL DIFF 4.7 TH/MM3 (1.8-7.7); POLYS (SEG NEUTROPHILS) 27 % (16-70)
[2017-11-13 11:15] VITALS: BP 141/73; PULSE 78; RESP 18; O2SAT 97
--- NOTE | 2017-11-13 11:57 | RADRPT ---
EXAM DATE/TIME: 11/13/2017 11:29 [facility] COMPARISON: US ABDOMEN - GALLBLADDER, September 27, 2017, 8:54. CT ABDOMEN & PELVIS W CONTRAST, November 12, 2017, 5:44. INDICATIONS : Right upper quadrant pain. Elevated bilirubin. Status post cholecystectomy. MEDICAL HISTORY : Hypothyroidism. Arthritis. Osteoarthritis. Cataracts. Dissected vertebral artery. CVA. Hyperlipidemia . HTN. GERD. Mumps. Skin cancer. Measles. SURGICAL HISTORY : Tonsillectomy. Cholecystectomy. Left torn retina repaired with laser. Bilateral bunionectomies. Lef t toe surgery with hardware. Right leg excision skin lesion. ENCOUNTER: Initial ACUITY: 4-6 days PAIN SCORE: 6/10 LOCATION: Right upper quadrant MEASUREMENTS: LIVER: 11.3 cm length COMMON DUCT: 4 mm RIGHT KIDNEY: 9.7 x 4.3 x 4.2 cm FINDINGS: LIVER: Liver demonstrates grossly normal echogenicity without evidence for significant volume loss. No signi ficant intrahepatic ductal dilatation. COMMON DUCT: No intraluminal mass or stone visualized. GALLBLADDER: Cholecystectomy. PANCREAS: The visualized portions are within normal limits. RIGHT KIDNEY: Slightly increased renal cortical echogenicity. Otherwise, no hydronephrosis or renal calculi. CONCLUSION: 1. Status post cholecystectomy without sonographic evidence for significant biliary ductal dilatation . 2. Mildly increased right renal cortical echogenicity which may reflect some degree of medical renal disease. Kai Saavedra MD on November 13, 2017 at 11:52 Board Certified Radiologist. This report was verified electronically.
[2017-11-13 12:15] VITALS: BP 140/76; PULSE 76; RESP 18; O2SAT 97
== END 2017-11-13 12:25 | disposition home or self-care (01) ==
LOC: PHED 09:23
DX: R10.11 Right upper quadrant pain (principal); R19.7 Diarrhea, unspecified; Z86.73 Personal history of transient ischemic attack (TIA), and cerebral infarction without residual deficits; K21.9 Gastro-esophageal reflux disease without esophagitis; I10 Essential (primary) hypertension
CPT/HCPCS: 76705; 80053; 81001; 85007; 85027